=== PATIENT | female | born 1950 | race Caucasian/White ===

== ENCOUNTER → 2017-08-17 | Outpatient (CLI) | payer MEDICARE, SELFPAY | PROVIDERS: PCP Family Medicine; Visit Provider Family Medicine | DX: R07.2 Precordial pain (principal) | CPT/HCPCS: 78452; 93017; A9502; J2785 ==

== ENCOUNTER 2017-09-01 07:44 | Day surgery (SDC) | payer MEDICARE, SELFPAY ==
[2017-09-01] VITALS (15 sets, daily range): BP systolic 104–150; BP diastolic 51–74; PULSE 66–72; RESP 18–20; TEMP 36.4–36.6; O2SAT 94–99; BMI 43.2
--- NOTE | 2017-09-01 08:30 | IR_ITS ---
CARDIAC CATHETERIZATION DATE OF CATHETERIZATION:09/01/2017 9:34 AM PROCEDURES: 1. Left heart catheterization 2. Left ventriculogram 3. Selective coronary angiogram 4. Left internal mammary angiography 5. Selective engagement of the saphenous vein graft to the circumflex artery INDICATION FOR TEST: 1. Coronary artery disease 2. History of coronary bypass surgery 3. Abnormal study Myoview Informed consent was obtained prior to the procedure. COMPLICATIONS: None ESTIMATED BLOOD LOSS: Less than 10 ml. TECHNIQUE: One percent lidocaine was used to anesthetize the right groin. The right femoral artery was accessed via the Seldinger technique. A 4-Albanian sheath was placed in the right femoral artery. The JL-4 and JR-4 catheter was also used to perform left heart catheterization left ventriculogram and selective coronary angiography. The JR4 catheter was used to perform left internal mammary angiography as well as saphenous vein graft to the circumflex artery.. At the end of the procedure the patient was transferred to the post-op holding area in stable condition for arterial sheath removal. ANGIOGRAPHIC RESULTS: 1. The left main artery has an ostial 40-50% smooth stenosis 2. The left anterior descending artery is normal 3. The circumflex artery has proximal 20% stenoses with competitive flow in the first obtuse marginal artery from the saphenous vein graft 4. The right coronary artery dominant and normal 5. The LEE ventriculogram reveals normal 65% 6. The left ventricular end-diastolic pressure 10 mmHg 7. The saphenous vein graft to the obtuse marginal artery is angiographically normal and makes excellent anastomosis on to the obtuse marginal artery 8. Left internal mammary artery is proximally occluded IMPRESSION: 1. Coronary artery disease as described above 2. Normal ejection fraction 3. Normal left ventricular end-diastolic pressure PLAN: 1. Medical management 2. Evaluation of noncardiac chest pain
[2017-09-01 08:34] LABS: Basophils # 0.1 K/mm3 (0-0.2); Basophils % 0.8 % (0.1-2.0); Eosinophils # 0.3 K/mm3 (0.0-0.4); Hematocrit 37.7 % (37.0-47.0); Hemoglobin 12.2 g/dL (12.2-16.2); Lymphocytes # 2.3 K/mm3 (0.7-4.5); Lymphocytes % 23.1 K/mm3 (10-50); Mean Corpuscular HGB Conc 32.2 g/dL (31.8-35.4); Mean Corpuscular Hemoglobin 26.1 pg (27.0-31.2); Mean Corpuscular Volume 81.1 fl (81-99); Monocytes # 0.5 K/mm3 (0.1-1.0); Monocytes % 4.7 % (1.7-9.3); Neutrophils # 6.8 K/mm3 (1.8-7.8); Neutrophils % 68.4 % (37.0-80.0); Platelet Count 286 K/mm3 (142-424); Red Blood Count 4.66 M/mm3 (4.20-5.40); Red Cell Distribution Width 13.7 % (11.5-17.5); White Blood Count 9.9 K/mm3 (4.8-10.8)
[2017-09-01 08:51] LABS: Anion Gap 10.7 mEq/L (5-15); Blood Urea Nitrogen 12 mg/dL (7-18); Carbon Dioxide 27 mmol/L (21.0-32.0); Chloride 104 mmol/L (98-107); Creatinine Clearance Estimated 48 mg/ml (0-300); Creatinine,Serum 0.92 mg/dL (0.55-1.02); Estimated Glomerular Filt Rate > 60 ml/min (>60); GFR (African American) > 60 ML/MIN (>60); Glucose 146 mg/dL (74-106); Potassium 3.7 mmoL/L (3.5-5.1); Sodium 138 mmol/L (136-145)
--- NOTE | 2017-09-15 11:04 | PC.NURSE ---
post procedure call made, pt states she is doing well, has f/u appt with md this week, denies any questions/concerns at this time
== END 2017-09-01 13:30 | disposition home or self-care (01) ==
LOC: CATHLAB 07:47
PROVIDERS: Family Provider Family Medicine; PCP Family Medicine; Visit Provider Internal Medicine
DX: I25.10 Atherosclerotic heart disease of native coronary artery without angina pectoris (principal); R94.39 Abnormal result of other cardiovascular function study; Z95.1 Presence of aortocoronary bypass graft
CPT/HCPCS: 80048; 85025; 93459; 99152; C1725; C1769; C1894; J1644; Q9967

== ENCOUNTER → 2018-06-01 13:58 | Outpatient (CLI) | payer MEDICARE, SELFPAY ==
--- NOTE | 2018-06-01 | MM_ITS ---
MM Dig screening mamm BI w/CAD ORDERING PHYSICIAN : Horace Retana MD PATIENT AGE: 68 years GENDER: Female COMPARISON: January 2017, July 2017, December 2015 with March 2011 mammogram also helpful. . Right mammogram study from July 2017, January 2016 INDICATION: ITS.REASON: SCREENING no hormones. No new complaints.. Family history : sister with breast cancer postmenopausal Previous cyst aspiration left breast previous percutaneous biopsy right breast TECHNIQUE: Standard CC and MLO images were obtained. R2 CAD reviewed. FINDINGS: Moderate breast density. Scattered areas of nodularity bilaterally similar to previous studies. Skin mole markers bilaterally RIGHT BREAST:No significant new findings ... Small area of density at the lateral breast on cc view which remain stable... Studies dating back to 2010 ongoing follow-up adequate . Metallic marker from previous percutaneous biopsy at the central breast again noted with minimal residual postbiopsy density here.. Stable/unchanged. LEFT BREAST:No significant new findings.. Small stable nodular density medial left breast with overall benign-appearing fairly punctate calcifications. This is been present appears overall stable since 2016 & 2010 mammograms.--thus can be followed followed. Follow-up in one year on left. The Left MLO view appears unchanged since last year IMPRESSION: . Stable bilateral mammogram. No significant new findings. Stable densities bilaterally Stable small areas of density right breast can be followed. Stable areas of minimal nodularity left breast Bilateral follow-up within one year recommended & should be encouraged. BI-RADS Category: 2 Benign Finding(s) RECOMMENDED FOLLOW-UP: 1YR 1 YEAR FOLLOW-UP One year follow-up recommended and important (A letter has been sent to the patient regarding results of the study.)
== END ==
PROVIDERS: PCP Family Medicine; Visit Provider Family Medicine
DX: Z12.31 Encounter for screening mammogram for malignant neoplasm of breast (principal)
CPT/HCPCS: 77067

== ENCOUNTER → 2018-07-12 16:24 | Outpatient (CLI) | payer MEDICARE, SELFPAY ==
--- NOTE | 2018-07-12 16:32 | XR_ITS ---
XR hip LT 2-3V w/pelvis, XR femur LT 2V XR knee LT 3V, Ordering Physician: Meron Jones MD Patient Age: 68 years: Female HISTORY: ITS.REASON: LEFT LEG PAIN TECHNIQUE: Left hip 2 vi view Left femur 2 view Left knee 3 view COMPARISON no previous left knee or left leg studies :. Contralateral right knee May 2010 CT abdomen pelvis from May 2013--includes left hip images FINDINGS ======= LEFT HIP.: Comparison is made to June 17, 2013 CT pelvis/abdomen Again see Joint space narrowing most evident at medial/posterior aspect of the left hip joint space... Actually the prior 2012 CT pelvis very helpful in demonstrating narrowing and previous evident arthritic changes at left hip- most evident along posterior aspect left hip joint. Numerous subchondral cystic changes and mild sclerosis seen throughout the posterior/medial portion of the acetabulum.. On today's study there may be some early subchondral cystic changes towards the roof of acetabulum as well today.. Hypertrophic lipping from inferior femoral head and inferior acetabulum-most evident inferior/ posterior aspect of joint... Of AP PELVIS . This demonstrates the more evident arthritic changes at the left hip versus the fairly normal-appearing right hip. Right hip appears intact with only borderline narrowing superior joint space and possible scant degenerative changes. Right femoral head and neck unremarkable on this AP view. Remainder of osseous pelvis appears intact. Sacrum and SI joints, iliac bone, and pubis and rami unremarkable.-Remainder of the AP pelvis appears stable. ======= LEFT KNEE: Left TKA.. Components appear to be stable with no fracture nor loosening evident. Upper normal joint fluid perhaps small joint effusion questioned at suprapatellar bursa. . dystrophic calcification/ossifications evident and pronounced overlying the medial aspect of the joint. Please corticated altercation/ossifications overlying medial margin of the medial femoral condyle as well as possibly involving the medial joint capsule or MCL. Mild hypertrophic changes from the lateral margin of the lateral tibial plateau. On lateral view there small focus of dystrophic calcification at the quadriceps tendon with a slightly larger one off the inferior margin of patella and insertion of patellar tendon.. LEFT FEMUR: The left femur is intact. Femoral shaft is intact with no fracture. Left TKA again noted. . ------IMPRESSION/ SUMMARY 1. LEFT HIP Moderate Arthritic changes left hip-these have been present since 2013 CT-with subtle progression. Narrowing/arthritic changes left hip joint most evident posterior medial joint, as well as inferior joint. Numerous subchondral cyst & mild sclerosis throughout posterior acetabulum Hypertrophic lipping most evident along inferior aspect joint. 2. LEFT KNEE:. . Left TKA appears intact with no fracture nor loosening.... Suggestion scant joint effusion . Dystrophic calcifications/ossification most evident along medial aspect joint, but also seen along margins patella. Appear long-standing but No previous studies for comparison 3. LEFT FEMUR otherwise intact
== END ==
PROVIDERS: PCP Family Medicine; Visit Provider Family Medicine
DX: M25.562 Pain in left knee (principal); M25.552 Pain in left hip; M79.605 Pain in left leg
CPT/HCPCS: 73502; 73552; 73562

== ENCOUNTER → 2018-11-10 12:36 | Outpatient (CLI) | payer MEDICARE, SELFPAY ==
--- NOTE | 2018-11-10 12:41 | CA_ITS ---
PROCEDURE: 2-D M-mode and color Doppler study INDICATIONS FOR THE TEST: Chest pain COPD Heart Murmur Tobacco Smoking Palpitations Fatigue Syncope Edema Hypertension +Diabetes Mellitus Rheumatic Fever SOB+GORE Obesity Hyperlipidemia+ Family History HD Additional History CABG PATIENT INFORMATION HEIGHT: 66 WEIGHT:265 GENDER: Female B/P:132/70 2-D/M-MODE INTERPRETATION: 2-D MEASUREMENTS OBSERVED VALUES IN CMS Right Ventricular Dimension (RVDd) 2.2 Interventricular Septum (Thickness)(IVsd) 1.6 Left Ventricular Internal Dimensions(LVIDd) 5.5 Left Ventricular Posterior Wall (Thickness)(LVPWd) 0.8 Aortic Root 3.5 Aortic Cusp Separation 2.1 Left Atrial Dimensions (LAD) 3.6 2D 1. Left Atrium is mildly enlarged, left ventricle is normal size, mild concentric left ventricular hypertrophy, visually estimated ejection fraction 50% with no regional wall motion abnormality. 2. The right atrium and right ventricle are normal size and contractility. 3. The aortic valve is minimally thickened and fibrosed. 4. The mitral and tricuspid valve leaflets are minimally thickened. 5. The pulmonic valve is poorly visualized. 6. No significant pericardial effusion noted. DOPPLER INTERROGATION: Doppler interrogation of the aortic, mitral and tricuspid valvular presence of mild mitral and tricuspid regurgitation, tricuspid regurgitation jet velocity is inadequate for calculation of the right ventricular systolic pressure, grade 1 diastolic dysfunction seen with tissue Doppler evidence of raised left atrial pressure. CONCLUSION: 1. Mildly enlarged left atrium, normal left ventricular size, mild concentric left ventricular hypertrophy, visually estimated ejection fraction 50% with no regional wall motion abnormality, grade 1 diastolic dysfunction seen with tissue Doppler evidence of raised left atrial pressure. 2. Mild mitral and tricuspid regurgitation 3. No significant pericardial effusion noted.
== END ==
PROVIDERS: PCP Family Medicine; Visit Provider Internal Medicine
DX: E78.2 Mixed hyperlipidemia (principal); I10 Essential (primary) hypertension; I25.10 Atherosclerotic heart disease of native coronary artery without angina pectoris; K21.9 Gastro-esophageal reflux disease without esophagitis; R06.02 Shortness of breath; Z95.1 Presence of aortocoronary bypass graft
CPT/HCPCS: 93306

== ENCOUNTER → 2018-12-11 08:02 | Outpatient (CLI) | payer MEDICARE, SELFPAY ==
--- NOTE | 2018-12-11 08:05 | CT_ITS ---
CT abdomen pelvis wo con CLINICAL INDICATION: Abdominal mass with tenderness and swelling ITS.REASON: ABDOMINAL MASS ORDERING PHYSICIAN: Horace Retana MD PATIENT AGE: 68 years COMPARISON: 06/28/2013 TECHNIQUE: Axial images obtained with sagittal and coronal reformats. All CT scans at the facility use one or more dose reduction, viz: automated exposure control, ma/kV adjustment per patient size (including targeted exams where dose is matched to indication, i.e. head), or iterative reconstruction technique. PROCEDURE: Oral Contrast: None IV Contrast: None . FINDINGS: There are atelectatic or fibrotic changes in the lung bases. Diffuse fatty liver. Prior cholecystectomy. No ductal dilatation. The spleen, adrenal glands, and pancreas have an unremarkable appearance. No hydronephrosis or ureteral calculi. There is a 2 mm stone in the upper pole the right kidney. There is a ventral abdominal wall hernia containing fat. This is 4 cm above the umbilicus. There is some minimal infiltration of the peritoneal fat just deep to this hernia. There is a small umbilical hernia which also contains fat. No evidence of appendicitis or diverticulitis. No intestinal obstruction or free air. Prior hysterectomy. No pelvic mass or abnormal fluid collection or focal inflammatory changes pelvis. There are mild degenerative changes of the hips. IMPRESSION: 1. There is a small supraumbilical and small umbilical hernia both containing fat with some minimal haziness of the fat just deep to the supra umbilical hernia. 2. Fatty liver. 3. Punctate right renal calculus at 2 mm
[2018-12-11 09:28] LABS: Alanine Aminotransferase 35 U/L (12-78); Albumin Level 3.4 gm/dL (3.4-5.0); Albumin/Globulin Ratio 0.9 (1.1-1.8); Alkaline Phosphatase 97 U/L (46-116); Anion Gap 12.7 mEq/L (5-15); Aspartate Amino Transferase 13 U/L (15-37); Bilirubin,Total 0.3 mg/dL (0.2-1.0); Blood Urea Nitrogen 14 mg/dL (7-18); Calcium 8.9 mg/dL (8.5-10.1); Carbon Dioxide 28 mmol/L (21.0-32.0); Chloride 106 mmol/L (98-107); Chol/HDL Ratio 3.2 (1-3.5); Cholesterol 136 mg/dL (140-200); Creatinine,Serum 1.02 mg/dL (0.55-1.02); Estimated Glomerular Filt Rate 54 ml/min (>60); GFR (African American) 65 ML/MIN (>60); Globulin 3.6 gm/dl (1.3-3.2); Glucose 160 mg/dL (74-106); HDL Cholesterol 43 mg/dL (29-89); LDL Cholesterol 64 mg/dL (0-130); Potassium 4.7 mmoL/L (3.5-5.1); Sodium 142 mmol/L (136-145); Triglycerides 146 mg/dL (30-200); VLDL Cholesterol 29 mg/dL (0-40)
[2018-12-11 10:16] LABS: Hemoglobin A1C 8.5 % (0.0-7.0)
== END ==
PROVIDERS: PCP Family Medicine; Visit Provider Family Medicine
DX: R19.09 Other intra-abdominal and pelvic swelling, mass and lump (principal); E11.9 Type 2 diabetes mellitus without complications; Z79.84 Long term (current) use of oral hypoglycemic drugs; E78.5 Hyperlipidemia, unspecified; I25.10 Atherosclerotic heart disease of native coronary artery without angina pectoris; I10 Essential (primary) hypertension
CPT/HCPCS: 36415; 74176; 80053; 80061; 83036

== ENCOUNTER → 2019-01-10 14:55 | Outpatient (CLI) | payer MEDICARE, SELFPAY ==
[2019-01-10 15:25] LABS: Microscopic, Urine URINE MICROSCOPIC (MICROSCOPIC)
[2019-01-10 15:46] LABS: Appearance,Urine CLEAR (Clear); Bilirubin,Urine Negative (Negative); Blood, Urine 1+ (Negative); Color,Urine YELLOW (Yellow); Glucose,Urine (UA) Negative (Negative); Ketones,Urine Negative (Negative); Leukocyte Esterase,Urine TRACE (Negative); Nitrate,Urine Negative (Negative); Protein,Urine Negative (Negative); Urobilinogen,Urine 0.2 EU/dl (0.2)
[2019-01-10 15:57] LABS: Basophils # 0.1 K/mm3 (0-0.2); Basophils % 0.8 % (0.1-2.0); Eosinophils # 0.2 K/mm3 (0.0-0.4); Eosinophils % 2.2 % (0.1-12.0); Hemoglobin 12.2 g/dL (12.2-16.2); Lymphocytes # 2.6 K/mm3 (0.7-4.5); Lymphocytes % 24.9 % (10-50); Mean Corpuscular HGB Conc 32.8 g/dL (31.8-35.4); Mean Corpuscular Hemoglobin 27.3 pg (27.0-31.2); Mean Corpuscular Volume 83.2 fl (81-99); Mean Platelet Volume 7.1 fl (7.4-10.4); Monocytes # 0.4 K/mm3 (0.1-1.0); Monocytes % 3.6 % (1.7-9.3); Neutrophils # 7.1 K/mm3 (1.8-7.8); Neutrophils % 68.6 % (37.0-80.0); Platelet Count 339 K/mm3 (142-424); Red Blood Count 4.45 M/mm3 (4.20-5.40); Red Cell Distribution Width 13.5 % (11.5-17.5); White Blood Count 10.3 K/mm3 (4.8-10.8)
[2019-01-10 16:10] LABS: Bacteria,Urine Trace /lpf; RBC,Urine Occasional #/hpf (0-3); WBC,Urine Occasional #/hpf (0-3)
[2019-01-10 17:02] LABS: Anion Gap 14.4 mEq/L (5-15); Blood Urea Nitrogen 17 mg/dL (7-18); Calcium 8.9 mg/dL (8.5-10.1); Carbon Dioxide 27 mmol/L (21.0-32.0); Chloride 104 mmol/L (98-107); Creatinine,Serum 0.92 mg/dL (0.55-1.02); Estimated Glomerular Filt Rate 61 ml/min (>60); GFR (African American) 73 ML/MIN (>60); Glucose 122 mg/dL (74-106); Potassium 4.4 mmoL/L (3.5-5.1); Sodium 141 mmol/L (136-145)
== END ==
PROVIDERS: Surgery; PCP Family Medicine; Visit Provider Family Medicine
DX: K81.1 Chronic cholecystitis (principal); K42.9 Umbilical hernia without obstruction or gangrene
CPT/HCPCS: 36415; 80048; 81001; 85025; 93005

== ENCOUNTER → 2019-01-10 15:18 | Outpatient (CLI) | payer MEDICARE, SELFPAY | PROVIDERS: Visit Provider Surgery | DX: Z01.818 Encounter for other preprocedural examination (principal) | CPT/HCPCS: 36415; 80048; 81001; 85025; 93005 ==

== ENCOUNTER → 2019-03-16 14:17 | Outpatient (CLI) | payer MEDICARE, SELFPAY ==
--- NOTE | 2019-03-16 14:20 | XR_ITS ---
XR DEXA axial skeleton HISTORY: ITS.REASON: POST MENOPAUSAL ORDERING PHYSICIAN: Horace Retana MD PATIENT AGE: 68 years COMPARISON: 02/03/2017 FINDINGS: The BMD measured at the AP Spine L1-L4 femoral neck is 1.302 g/cm squared with a T score of 1.0. This is considered Normal according to the World Health Organization criteria. Fracture risk is Low. Treatment is advised. The L-spine density has increased by 4.7%. The main hip density has a T score 1.6 and has decreased by 1.9% IMPRESSION: Normal bone density with low fracture risk. Suggest follow-up exam in 2 years
== END ==
PROVIDERS: PCP Family Medicine; Visit Provider Family Medicine
DX: Z78.0 Asymptomatic menopausal state (principal)
CPT/HCPCS: 77080

== ENCOUNTER → 2019-06-25 13:03 | Outpatient (CLI) | payer MEDICARE, SELFPAY ==
--- NOTE | 2019-06-25 13:04 | XR_ITS ---
PROCEDURE: XR THORACIC SPINE 3V CLINICAL INDICATION: LUMBAGO W/SCIATICA Pain between shoulder blade COMPARISON: CXR2 CHEST-AP VIEW ONLY from 12/11/2015 CXR CHEST(2 VIEWS-NOT PORTABLE) from 09/07/2016 FINDINGS: Minimal upper thoracic curvature convex left and mid to lower thoracic curvature convex right. Multilevel degenerative disc disease with mild kyphosis. T5 and T6 which appears slightly worse at T6 compared to 09/07/2016. IMPRESSION: Degenerative change with kyphosis with mild wedging of T6 which appears slightly worse Dictated by: Ritesh Taylor MD 06/25/2019 14:19 Electronically signed by Ritesh Taylor MD in [place] 06/25/2019 14:19
--- NOTE | 2019-06-25 13:05 | MM_ITS ---
PROCEDURE: MM DIG SCREENING MAMM BI W/CAD CLINICAL INDICATION: SCREENING There is a history of breast cancer in patient's sister diagnosed after menopause. There has been a previous cyst aspiration left breast for benign disease. COMPARISON: [facility] DIG MAMM-SCREEN ELIJAH W/CAD from 02/03/2017 [facility] DIG MAMM-DX UNI-RT W/CAD from 08/11/2017 [facility] MM Dig screening mamm BI w/CAD from 06/01/2018 TECHNIQUE: Standard CC and MLO images were obtained. R2 CAD reviewed. FINDINGS: Diffuse fibroglandular densities are seen throughout both breasts. There are mole markers on each breast. There is a biopsy clip central portion right breast. There are few scattered benign-appearing microcalcifications in each breast. There is an asymmetric density outer quadrant right breast best seen on the CC projection which has been present previously but shows possibly slight interval increase in size and density. I would recommend patient return for follow-up spot compression views of the area marked on images of the right breast, ultrasound may be necessary as well. IMPRESSION: Fibrofatty parenchyma with possible change in asymmetric density right breast BI-RAD Category: 0 Need Additional Imaging Evaluation FOLLOW-UP: IMM Immediate Follow-up Recommended (A letter has been sent to the patient regarding results of the study.) Dictated by: Dr. Juno Betancur MD 06/27/2019 15:[address] Juno Betancur MD in [place] 06/27/2019 15:00
== END ==
PROVIDERS: PCP Family Medicine; Visit Provider Family Medicine
DX: Z12.31 Encounter for screening mammogram for malignant neoplasm of breast (principal)
CPT/HCPCS: 72072; 77067

== ENCOUNTER → 2019-08-07 14:06 | Outpatient (CLI) | payer MEDICARE, SELFPAY ==
--- NOTE | 2019-08-07 14:10 | MM_ITS ---
PROCEDURE: MM DIG MAMM DX UNILAT RT CAD CLINICAL INDICATION: ABNORMAL MAMM Follow-up abnormal mammogram COMPARISON: [facility] DIG MAMM-SCREEN ELIJAH from 01/13/2016 [facility] DIG MAMM- ELIJAH ADD VIEWS from 02/02/2016 [facility] DIG MAMM-DX UNI-RT from 02/25/2016 [facility] DIG MAMM-SCREEN ELIJAH W/CAD from 02/03/2017 [facility] DIG MAMM-DX UNI-RT W/CAD from 08/11/2017 [facility] MM Dig screening mamm BI w/CAD from 06/01/2018 MM DIG SCREENING MAMM BI W/CAD from 06/25/2019 US BREAST RT COMPLETE from 08/07/2019 TECHNIQUE: Problem solving views of the right breast along with right breast ultrasound FINDINGS: Average fibroglandular tissue. There has been a prior biopsy with clip in the central aspect of the right breast. There is some asymmetric density in this region. This is not well-defined and may only be due to asymmetric fibroglandular tissue.. This area of asymmetry not significantly changed and not as prominent on the rolled views. Right breast ultrasound: Small complex cyst is present at 10 o'clock at 4 mm and could in part contribute to the mammographic abnormality. No suspicious nodules are evident. IMPRESSION: Asymmetry in the outer aspect of the right breast which may be due to overlapping fibroglandular tissue and a small complex cyst. No convincing evidence of malignancy. Recommend six-month mammographic and sonographic follow-up BI-RAD Category: 3 Probably Benign Finding Short Term Follow-up FOLLOW-UP: 6M 6Month Follow-up (A letter has been sent to the patient regarding results of the study.) Dictated by: Ritesh Taylor MD 08/11/2019 11:31 Electronically signed by Ritesh Taylor MD in [place] 08/11/2019 11:31
== END ==
PROVIDERS: PCP Family Medicine; Visit Provider Nurse Practitioner Family
DX: R92.8 Other abnormal and inconclusive findings on diagnostic imaging of breast (principal)
CPT/HCPCS: 76641; 77065

== ENCOUNTER → 2019-08-24 13:44 | Outpatient (CLI) | payer MEDICARE, SELFPAY ==
[2019-08-24 13:59] LABS: Adenovirus F 40/41, stool Not Detected (NotDetected); Astrovirus Not Detected (NotDetected); Campylobacter Not Detected (NotDetected); Clostridium Difficile A/B, PCR Not Detected (NotDetected); Cryptosporidium Not Detected (NotDetected); Cyclospora Cayetanesis Not Detected (NotDetected); Entamoeba histolytica Not Detected (NotDetected); Enteroaggregative E coli Not Detected (NotDetected); Enteropathogenic E coli Not Detected (NotDetected); Enterotoxigenic E coli Not Detected (NotDetected); Giardia lamblia Not Detected (NotDetected); Norovirus Not Detected (NotDetected); Plesimonas Shigalloides, PCR Not Detected (NotDetected); Rotavirus A Not Detected (NotDetected); Salmonella, PCR Not Detected (NotDetected); Sapovirus Not Detected (NotDetected); Shiga-like toxin E coli Not Detected (NotDetected); Shigella Enterovasive E coli Not Detected (NotDetected); Vibrio Cholerae Not Detected (NotDetected); Vibrio, PCR Not Detected (NotDetected); Yersinia Entercolitica, PCR Not Detected (NotDetected)
== END ==
PROVIDERS: Visit Provider Physician Assistant
DX: R19.7 Diarrhea, unspecified (principal)
CPT/HCPCS: 87507

== ENCOUNTER → 2019-10-30 11:56 | Outpatient (CLI) | payer MEDICARE, SELFPAY ==
[2019-10-30 13:08] LABS: Chloride 105 mmol/L (98-107); Potassium 5.1 mmoL/L (3.5-5.1); Sodium 138 mmol/L (136-145)
[2019-10-30 13:11] LABS: Alanine Aminotransferase 18 U/L (12-78); Albumin Level 3.6 g/dl (3.5-5.0); Albumin/Globulin Ratio 1.1 (1.1-1.8); Alkaline Phosphatase 99 U/L (38-126); Anion Gap 12.1 mEq/L (5-15); Aspartate Amino Transferase 23 U/L (14-36); Bilirubin,Total 0.4 mg/dl (0.2-1.3); Blood Urea Nitrogen 20 mg/dl (7-17); Calcium 9.3 mg/dl (8.4-10.2); Carbon Dioxide 26 mmol/L (22.0-30.0); Cholesterol 127 mg/dl (140-200); Estimated Glomerular Filt Rate 71 ml/min (>60); GFR (African American) 86 ML/MIN (>60); Globulin 3.2 g/dL (1.3-3.2); Glucose 157 mg/dl (74-100); Total Protein,Serum 6.8 g/dl (6.3-8.2); Triglycerides 119 mg/dl (30-150); VLDL Cholesterol 24 mg/dL (0-40)
[2019-10-30 13:12] LABS: Chol/HDL Ratio 2.6 (1-3.5); HDL Cholesterol 49 mg/dl (40-60)
[2019-10-30 13:20] LABS: NT Pro Brain Natriuretic Pep. 70.2 pg/mL (0-125)
[2019-10-30 13:23] LABS: Direct LDL Cholesterol 55.44 mg/dL (100-129)
[2019-10-31 18:41] LABS: Hemoglobin A1C 7.4 % (4.0-6.0)
== END ==
PROVIDERS: PCP Family Medicine; Visit Provider Internal Medicine Cardiovascular Disease
DX: E78.5 Hyperlipidemia, unspecified (principal); I11.9 Hypertensive heart disease without heart failure; I20.8 Other forms of angina pectoris; K21.9 Gastro-esophageal reflux disease without esophagitis; R06.00 Dyspnea, unspecified; Z95.1 Presence of aortocoronary bypass graft; E11.9 Type 2 diabetes mellitus without complications; Z79.84 Long term (current) use of oral hypoglycemic drugs
CPT/HCPCS: 36415; 80053; 80061; 83036; 83880

== ENCOUNTER → 2019-11-01 13:10 | Outpatient (CLI) | payer MEDICARE, SELFPAY | PROVIDERS: PCP Family Medicine; Visit Provider Internal Medicine Cardiovascular Disease | DX: G47.33 Obstructive sleep apnea (adult) (pediatric) (principal); R06.00 Dyspnea, unspecified; R06.83 Snoring; R40.0 Somnolence; I11.9 Hypertensive heart disease without heart failure; I20.8 Other forms of angina pectoris; K21.9 Gastro-esophageal reflux disease without esophagitis; E78.5 Hyperlipidemia, unspecified; Z95.1 Presence of aortocoronary bypass graft | CPT/HCPCS: G0399 ==

== ENCOUNTER → 2020-03-21 16:26 | Outpatient (CLI) | payer MEDICARE, SELFPAY ==
--- NOTE | 2020-03-21 16:35 | XR_ITS ---
PROCEDURE: XR RIBS RT MIN 3V W CXR1V CLINICAL INDICATION: UNSPECIFIED INJURY OF THORAX Posttraumatic pain COMPARISON: CXR2 CHEST-AP VIEW ONLY from 12/11/2015 CXR CHEST(2 VIEWS-NOT PORTABLE) from 09/07/2016 FINDINGS: Multiple views of the left ribs show no obvious fracture. No lytic or blastic change. Consider follow-up in 7-[address] with 3D reformats if pain persists Frontal view of the chest shows no acute finding. There has been a prior CABG with borderline cardiomegaly. IMPRESSION: No acute findings. Dictated by: Ritesh Taylor MD 03/21/2020 16:55 Electronically signed by Ritesh Taylor MD in [place] 03/21/2020 16:55
== END ==
PROVIDERS: PCP Family Medicine; Visit Provider Family Medicine
DX: S29.9XXA Unspecified injury of thorax, initial encounter (principal)
CPT/HCPCS: 71101

== ENCOUNTER → 2020-05-13 15:18 | Outpatient (CLI) | payer MEDICARE, SELFPAY ==
[2020-05-13 16:24] LABS: Anion Gap 15.5 mEq/L (5-15); Blood Urea Nitrogen 17 mg/dl (7-17); Calcium 9.5 mg/dl (8.4-10.2); Carbon Dioxide 26 mmol/L (22.0-30.0); Chloride 102 mmol/L (98-107); Estimated Glomerular Filt Rate 71 ml/min (>60); GFR (African American) 86 ML/MIN (>60); Glucose 174 mg/dl (74-100); Potassium 4.5 mmoL/L (3.5-5.1); Sodium 139 mmol/L (136-145)
== END ==
PROVIDERS: Visit Provider Internal Medicine Cardiovascular Disease
DX: E78.5 Hyperlipidemia, unspecified (principal); I11.9 Hypertensive heart disease without heart failure; I25.10 Atherosclerotic heart disease of native coronary artery without angina pectoris; K21.9 Gastro-esophageal reflux disease without esophagitis; R06.00 Dyspnea, unspecified; Z95.1 Presence of aortocoronary bypass graft
CPT/HCPCS: 36415; 80048

== ENCOUNTER → 2020-06-06 13:06 | Outpatient (CLI) | payer MEDICARE, SELFPAY ==
--- NOTE | 2020-06-06 13:15 | CT_ITS ---
PROCEDURE: CT SINUS WO CON CLINICAL HISTORY: SINUSITIS Chronic sinusitis COMPARISON: CT SINUS CT SINUS (MAX-FACIAL W/O CONT) from 02/07/2015 TECHNIQUE: Axial images obtained with sagittal and coronal reformats. All CT scans at the facility use one or more dose reduction, viz: automated exposure control, ma/kV adjustment per patient size (including targeted exams where dose is matched to indication, i.e. head), or iterative reconstruction technique. FINDINGS: There is minimal lobular mucosal thickening involving the medial aspect of the maxillary sinus on the left near the ostiomeatal complex. The ileum see however is patent. No sinus air-fluid levels. The frontal, ethmoid, right maxillary, and sphenoid sinuses have an unremarkable appearance. No mastoid effusion. Incidental note is made of pneumatization of the petrous bones on both sides. No fluid evident in these areas. No soft tissue mass. The orbits have an unremarkable appearance. There are severe osteoarthritic changes of the TMJs on both sides with flattening of the mandibular condyles. A loose body is present along the anterior aspect of the right temporomandibular joint measuring 5 mm. IMPRESSION: 1. No evidence of acute sinusitis. 2. 4 mm lobular area of mucosal thickening involving the left maxillary sinus superiorly and medially which may be due to small retention cyst. 3. Severe bilateral osteoarthritis of the TMJs with a small loose body along the anterior aspect of the right TMJ. Dictated by: Ritesh Taylor MD 06/07/2020 07:16 Ritesh Taylor MD in [place] 06/07/2020 07:16
== END ==
PROVIDERS: PCP Family Medicine; Visit Provider Otolaryngology
DX: J32.9 Chronic sinusitis, unspecified (principal)
CPT/HCPCS: 70486

== ENCOUNTER → 2020-10-06 13:56 | Outpatient (CLI) | payer MEDICARE, SELFPAY ==
--- NOTE | 2020-10-06 14:01 | XR_ITS ---
PROCEDURE: XR KNEE LT 4V CLINICAL INDICATION: BL knee pain COMPARISON: CR [id number] XR knee LT 3V from 07/12/2018 FINDINGS: There has been a total knee prosthesis placed on the left. There is good alignment. Heterotopic ossification noted medially. Surgical clips are present in the proximal leg medially. Calcification noted both superior and inferior to the patella IMPRESSION: Status post total knee replacement. Good alignment. No significant change Dictated by: Ritesh Taylor MD 10/06/2020 14:50 Ritesh Taylor MD in [place] 10/06/2020 14:50
--- NOTE | 2020-10-06 14:01 | XR_ITS ---
PROCEDURE: XR KNEE RT 4V CLINICAL INDICATION: Bilateral knee pain COMPARISON: CR [id number] XR knee LT 3V from 07/12/2018 FINDINGS: There are moderate osteoarthritic changes all 3 compartments. No fracture or dislocation. No lytic or blastic change. IMPRESSION: Moderate osteoarthritic change Dictated by: Ritesh Taylor MD 10/06/2020 14:48 Ritesh Taylor MD in [place] 10/06/2020 14:48
== END ==
LOC: RAD 13:59
PROVIDERS: PCP Family Medicine; Visit Provider Orthopaedic Surgery
DX: M25.561 Pain in right knee (principal); M25.562 Pain in left knee
CPT/HCPCS: 73564

== ENCOUNTER → 2020-11-11 11:38 | Outpatient (CLI) | payer MEDICARE, SELFPAY ==
[2020-11-11 13:03] LABS: Chloride 107 mmol/L (98-107); Potassium 4.8 mmoL/L (3.5-5.1); Sodium 141 mmol/L (136-145)
[2020-11-11 13:05] LABS: Alanine Aminotransferase 19 U/L (12-78); Aspartate Amino Transferase 23 U/L (14-36); Blood Urea Nitrogen 22 mg/dl (7-17); Estimated Glomerular Filt Rate 62 ml/min (>60); GFR (African American) 75 ML/MIN (>60)
[2020-11-11 13:06] LABS: Albumin Level 3.9 g/dl (3.5-5.0); Albumin/Globulin Ratio 1.1 (1.1-1.8); Alkaline Phosphatase 124 U/L (38-126); Anion Gap 13.8 mEq/L (5-15); Bilirubin,Total 0.3 mg/dl (0.2-1.3); Carbon Dioxide 25 mmol/L (22.0-30.0); Chol/HDL Ratio 2.4 (1-3.5); Cholesterol 120 mg/dl (140-200); Globulin 3.4 g/dL (1.3-3.2); Glucose 199 mg/dl (74-100); HDL Cholesterol 51 mg/dl (40-60); Magnesium 1.5 mg/dl (1.6-2.3); Total Protein,Serum 7.3 g/dl (6.3-8.2); Triglycerides 127 mg/dl (30-150); VLDL Cholesterol 25 mg/dL (0-40)
[2020-11-11 13:17] LABS: Direct LDL Cholesterol 42.44 mg/dL (100-129)
--- NOTE | 2020-11-11 14:11 | XR_ITS ---
PROCEDURE: XR LUMBAR SPINE MIN 4V CLINICAL INDICATION: LOW BACK PAIN COMPARISON: CT ABDPELW/O CT ABD PELVIS W/O CONTRAST from 06/28/2013 DX XR THORACIC SPINE 3V from 06/25/2019 FINDINGS: Normal alignment. No fracture or dislocation. Small anterior osteophytes are present at L5-L4 T12 and L1. there is mild lumbar curvature convex right. Degenerative disc disease is present in the lower thoracic spine. No lytic or blastic change. The SI joints have an unremarkable appearance. Osteoarthritic changes are present in the hips with subchondral cystic changes on the left. Other findings:None. IMPRESSION: Degenerative changes as described above. Dictated by: Ritesh Taylor MD 11/11/2020 14:57 Ritesh Taylor MD in [place] 11/11/2020 14:57
== END ==
PROVIDERS: PCP Family Medicine; Visit Provider Family Medicine
DX: I10 Essential (primary) hypertension (principal); E78.5 Hyperlipidemia, unspecified; E11.9 Type 2 diabetes mellitus without complications; Z79.84 Long term (current) use of oral hypoglycemic drugs
CPT/HCPCS: 36415; 72110; 80053; 80061; 83036; 83735

== ENCOUNTER → 2021-03-04 07:02 | Outpatient (CLI) | payer MEDICARE, SELFPAY ==
--- NOTE | 2021-03-04 07:03 | NM_ITS ---
APPROVED REPORT Exam: Nuclear Stress Test Indication: CAD, CABG, HTN, D.M., FM HX, SOB Patient Location: Outpatient Stress Tech: Jayda Jackson [place] Tech:Aminata SenABY RT (R)(N)(M) Ht: 5 ft 6 in Wt: 250 lbs Bra Size: B HR: 62 bpm BP: 124/60 mmHg BSA: 2.20 m2 BMI: 40.3 History: CAD, CABG, HTN, D.M., FM HX, SOB Procedure: Patient received a 0.4 mg of intravenous Lexiscan, resting heart rate 62 bpm, resting blood pressure 124/60 mmHg, with Lexiscan maximum heart rate achived was 96 bpm which is % of the maximum predicted heart rate and blood pressure was 130/63 mmHg. With Lexiscan, patient denied any complaint of chest pain. KRYSTA, H.A., MALAISE Cardiac Stress and Resting SPECT Images: Cardiac Stress and Resting SPECT images were obtained using technetium 99m Myoview 30.5 mCi stress and 10.20 mCi at rest. Ejection fraction of 58%. Mild dyskenesia of the anterior septal region at the base of the heart. No fixed or reversible defects. Conclusion: Ejection fraction of 58%. Mild dyskenesia of the anterior septal region at the base of the heart. No fixed or reversible defects. Electronically signed by : Ritesh Taylor MD 03/06/2021 14:17:08
--- NOTE | 2021-03-04 07:03 | CA_ITS ---
APPROVED REPORT Exam: Pharmacologic Technologist: oswaldo montgomery, Ht: 5 ft 5 in Wt: 273 lbs BSA: 2.26 m2 HR: 62 bpm BP: 124/60 mmHg Rhythm: NSR,NORMAL Indications: CP Medical History Medical History: HTN, Hyperlipidemia, Diabetic ??? Noninsulin Medications: Omeprazole,,,,, Metoprolol,,,,, Asa,,,,, Metformin,,,,, Coenzyme,,,,, Crestor,,,,, Tylenol,,,,, Tramadol,,,,, Celecoxib,,,,, SpirOnolactone,,,,, Xyzal,,,,, Cardiac Risk Factors: HTN, Hyperlipidemia, Diabetes (non-insulin) Stress Test Details Test: LEXISCAN HR Resting HR: 74 bpm Max Heart Rate (APMHR): 149.743935 bpm Max HR Achieved: 96 bpm Target HR (85% APMHR): 126.996762 bpm % of APMHR: 64.43 Recovery HR: 75 bpm BP Resting BP: 124.0/60.0 mmHg Max BP: 130.0/63.0 mmHg Recovery BP: 122.0/60.0 mmHg ECG Resting ECG: NSR,NORMAL Clinical Exercise duration: 04:06 min Highest Stage Achieved: Stress ECG Conclusion DURING INFUSION PATIENT HAD MILD SOA,MILD STOMACH CRAMPING,HEADACHE AND MALAISE. NO CP. NO ARRHYTHMIAS/ECTOPY. NO SIGNIFICANT ST-T CHANGES. UNREMARKABLE LEXISCAN STRESS. MYOVIEW IMAGES REPORTED SEPARATELY Electronically signed by : Cristobal Mills, 03/05/2021 09:25:13
== END ==
LOC: RAD 07:03
PROVIDERS: PCP Family Medicine; Visit Provider Internal Medicine Cardiovascular Disease
DX: E78.2 Mixed hyperlipidemia (principal); I11.9 Hypertensive heart disease without heart failure; I25.118 Atherosclerotic heart disease of native coronary artery with other forms of angina pectoris; R06.02 Shortness of breath; R06.83 Snoring; R40.0 Somnolence; Z95.1 Presence of aortocoronary bypass graft
CPT/HCPCS: 78452; 93017; A9502; J2785

== ENCOUNTER 2021-04-21 17:34 | Emergency (ER) | payer MEDICARE, SELFPAY ==
[2021-04-21 18:33] VITALS: BP 141/81; PULSE 77; RESP 12; TEMP 36.3; O2SAT 97; BMI 45.2
[2021-04-21 18:48] VITALS: BP 141/81; PULSE 77; RESP 12; TEMP 36.3
--- NOTE | 2021-04-21 18:52 | HMH.EDUTC ---
[facility] Disposition Clinical Impression: Exposure to COVID-19 virus, Viral syndrome Disposition: Home, Self-Care Condition on Discharge: Good Instructions: DI for Viral Syndrome, Preventing the Spread of Coronavirus Discharge Instructions Additional Instructions: Drink plenty of fluids. Take tylenol for pain or fever. Return if you begin to have difficulty breathing. Follow up with your regular doctor for further treatment regarding your possible sinus infection and covid exposure. GO TO THE ER FOR ANY WORSENING SYMPTOMS Quarantine until you know the results of your covid-19 test. If it is positive, the health department should call you and give you further instructions about your length of Quarantine and other things. Notify your school or workplace of your results and follow their instructions regarding return to work/school. Referrals: Horace Retana MD [Primary Care Provider] - Time of Disposition: 18:58 Medical Decision Making - Medical Records Medical records reviewed: No: I reviewed the patient's medical records. - Tomas Inquiry Pt receiving controlled substance: No Vital Signs: 04/21/21 18:33 04/21/21 18:48 Temperature 97.4 F L 97.4 F L Temperature Source Temporal Artery Scan Pulse Rate 77 Pulse Rate [Left] 77 Respiratory Rate 12 12 Blood Pressure 141/81 H Blood Pressure [Right Arm] 141/81 H Blood Pressure Mean [Right Arm] 101 02 Sat by Pulse Oximetry 97 Orders (Tests/Meds): ORDERS Category Date Time Status Covid-19 Nasal PCR ([facility]) Routine Lab 04/21/21 18:29 Received [facility] HPI - General Stated complaint: covid exposure, runny nose, headachem congestion Time Seen by Provider: 04/21/21 18:52 Mode of Arrival: Ambulatory Source of Information: Patient Limitations: No Limitations Description of Symptoms (Recalled from Triage Doc. by RN): pt states Dr. Retana wanted her to have a covid swab. HEENT Symptoms (Recalled from RN notes): No Resp Symptoms (Recalled from RN notes): No Skin Symptoms (Recalled from RN notes): No MS Symptoms (Recalled from RN notes): No Functional Status (Recalled from RN notes): na - History of Present Illness Provider Complaint: She has been exposed to covid by her son having it and she has been around his . She has been vaccinated against covid-19, but her son that has it has been too. She does have sinus congestion and sinus pressure. She states that she does get sinus infections at times and thats what it feels like to her. She states that she was instructed to get a covid test and then follow up with her pcp for treatment. - Related Data Home Medications Medication Instructions Recorded Confirmed Acetaminophen [Acetaminophen ER] 650 mg PO NEEDED PRN 09/01/17 03/19/21 Aspirin [Aspir 81] 81 mg PO DAILYDM 09/01/17 03/19/21 Lactobacillus Combination No.8 3,000 each PO DAILYDM 09/01/17 03/19/21 [Adult Probiotic] Multivitamin with Minerals [One 1 each PO DAILYDM 09/01/17 03/19/21 Daily Complete] Tramadol HCl [Ultram 50mg 50 mg PO Q6H PRN 09/01/17 03/19/21 tablet] irbesartan 150 mg tablet 150 mg PO DAILY 10/31/18 03/19/21 coenzyme Q10 100 mg capsule 100 mg PO DAILY 02/19/19 03/19/21 metformin 500 mg tablet 500 mg PO BID tab 02/19/19 03/19/21 celecoxib 200 mg capsule 200 mg PO DAILY cap 10/19/19 03/19/21 fluticasone propionate 50 2 spray INTRANASAL DAILY ml 05/13/20 03/19/21 mcg/actuation nasal spray,suspension sertraline 50 mg tablet 50 mg PO DAILY tab 08/07/20 03/19/21 glimepiride 2 mg tablet 2 mg PO DAILY tab 02/26/21 03/19/21 levocetirizine 5 mg tablet 5 mg PO DAILY tab 02/26/21 03/19/21 omeprazole 40 mg capsule,delayed 40 mg PO DAILY cap 02/26/21 03/19/21 release rosuvastatin 20 mg tablet 20 mg PO DAILY tab 02/26/21 03/19/21 Previous Rx's Medication Instructions Recorded metoprolol succinate 100 mg 100 mg PO DAILY #90 tab 12/15/20 tablet,extended release 24 hr spironolacton
== END 2021-04-21 19:18 | disposition home or self-care (01) ==
PROVIDERS: Emergency Provider Nurse Practitioner Family; PCP Family Medicine
DX: B34.9 Viral infection, unspecified (principal); Z20.822 Contact with and (suspected) exposure to COVID-19; K21.9 Gastro-esophageal reflux disease without esophagitis; E11.9 Type 2 diabetes mellitus without complications; I25.10 Atherosclerotic heart disease of native coronary artery without angina pectoris; F41.8 Other specified anxiety disorders; E78.5 Hyperlipidemia, unspecified; I10 Essential (primary) hypertension; M79.7 Fibromyalgia; Z88.2 Allergy status to sulfonamides; Z88.5 Allergy status to narcotic agent; Z79.899 Other long term (current) drug therapy
CPT/HCPCS: G0463; 99202; U0003

== ENCOUNTER → 2021-05-08 12:23 | Outpatient (CLI) | payer MEDICARE, SELFPAY | PROVIDERS: PCP Family Medicine; Visit Provider Family Medicine | DX: Z20.822 Contact with and (suspected) exposure to COVID-19 (principal) | CPT/HCPCS: U0003 ==

== ENCOUNTER → 2021-07-28 14:59 | Outpatient (CLI) | payer MEDICARE, SELFPAY | PROVIDERS: Visit Provider Surgery | DX: Z01.812 Encounter for preprocedural laboratory examination (principal); Z20.822 Contact with and (suspected) exposure to COVID-19; Z13.810 Encounter for screening for upper gastrointestinal disorder | CPT/HCPCS: C9803; U0003; U0005 ==

== ENCOUNTER → 2021-08-05 15:43 | Outpatient (CLI) | payer MEDICARE, SELFPAY ==
[2021-08-09 20:08] LABS: D001-IgE D pteronyssinus <0.10 kU/L (Class 0); D002-IgE D farinae <0.10 kU/L (Class 0); E001-IgE Cat Dander <0.10 kU/L (Class 0); E005-IgE Dog Dander <0.10 kU/L (Class 0); E072-IgE Mouse Urine <0.10 kU/L (Class 0); G002-IgE Bermuda Grass <0.10 kU/L (Class 0); G006-IgE Timothy Grass <0.10 kU/L (Class 0); I006-IgE Cockroach, German <0.10 kU/L (Class 0); Immunoglobulin E, Total 33 IU/mL (6-495); M001-IgE Penicillium chrysogen <0.10 kU/L (Class 0); M002-IgE Cladosporium herbarum <0.10 kU/L (Class 0); M003-IgE Aspergillus fumigatus <0.10 kU/L (Class 0); M006-IgE Alternaria alternata <0.10 kU/L (Class 0); T001-IgE Maple/Box Elder <0.10 kU/L (Class 0); T003-IgE Common Silver Birch <0.10 kU/L (Class 0); T006-IgE Cedar, Mountain <0.10 kU/L (Class 0); T007-IgE Oak, White <0.10 kU/L (Class 0); T008-IgE Elm, American <0.10 kU/L (Class 0); T010-IgE Walnut <0.10 kU/L (Class 0); T011-IgE Maple Leaf Sycamore <0.10 kU/L (Class 0); T014-IgE Cottonwood <0.10 kU/L (Class 0); T015-IgE Ash, White <0.10 kU/L (Class 0); T022-IgE Pecan, Hickory <0.10 kU/L (Class 0); T070-IgE White Mulberry <0.10 kU/L (Class 0); W001-IgE Ragweed, Short <0.10 kU/L (Class 0); W011-IgE Thistle, Russian <0.10 kU/L (Class 0); W014-IgE Pigweed, Common <0.10 kU/L (Class 0); W018-IgE Sheep Sorrel <0.10 kU/L (Class 0)
== END ==
PROVIDERS: Visit Provider Otolaryngology
DX: J30.9 Allergic rhinitis, unspecified (principal)
CPT/HCPCS: 36415; 82785; 86003

== ENCOUNTER → 2021-09-08 15:52 | Outpatient (CLI) | payer MEDICARE, SELFPAY ==
--- NOTE | 2021-09-08 15:59 | XR_ITS ---
FINAL REPORT CLINICAL HISTORY: ANKLE PAIN FINDINGS: RIGHT ANKLE 3 views of the right ankle were obtained. There is no acute fracture or dislocation. The mortise is intact. There is a chronic calcification superior to the distal talus. Mild degenerative changes are seen. There is calcaneal spurring. Lateral soft tissue swelling is noted. IMPRESSION: Degenerative changes without acute bony abnormality. Reviewed, Interpreted and Dictated by Coleman Angela III, MD Transcribed by Laura Mcconnell Authenticated by Coleman Angela III, MD on 09/08/2021 04:38:29 PM [facility]
== END ==
LOC: RAD 15:54
PROVIDERS: PCP Family Medicine; Visit Provider Family Medicine
DX: M25.571 Pain in right ankle and joints of right foot (principal)
CPT/HCPCS: 73610

== ENCOUNTER → 2021-10-14 16:34 | Outpatient (CLI) | payer MEDICARE, SELFPAY | LOC: RT 16:37 | PROVIDERS: PCP Family Medicine; Visit Provider Internal Medicine Cardiovascular Disease | DX: E78.2 Mixed hyperlipidemia (principal); G47.33 Obstructive sleep apnea (adult) (pediatric); I11.9 Hypertensive heart disease without heart failure; I25.118 Atherosclerotic heart disease of native coronary artery with other forms of angina pectoris; R00.2 Palpitations; R06.02 Shortness of breath; Z95.1 Presence of aortocoronary bypass graft; Z99.89 Dependence on other enabling machines and devices | CPT/HCPCS: 93270 ==

== ENCOUNTER 2021-11-18 03:04 | Emergency (ER) | payer MEDICARE, SELFPAY ==
[2021-11-18 03:00] VITALS: BP 133/67; PULSE 68; RESP 18; TEMP 37; O2SAT 94; BMI 38.7
[2021-11-18 03:18] LABS: POC Glucose,Bedside 214 (70-110)
[2021-11-18 03:22] LABS: Basophils # 0.1 K/mm3 (0-0.2); Basophils % 1.3 % (0.1-2.0); Eosinophils # 0.6 K/mm3 (0.0-0.4); Hemoglobin 11.4 g/dL (12.2-16.2); Lymphocytes # 2.8 K/mm3 (0.7-4.5); Lymphocytes % 29.1 % (10-50); Mean Corpuscular HGB Conc 32.7 g/dL (31.8-35.4); Mean Corpuscular Hemoglobin 27.5 pg (27.0-31.2); Mean Corpuscular Volume 83.9 fl (81-99); Mean Platelet Volume 8.3 fl (7.4-10.4); Monocytes # 0.5 K/mm3 (0.1-1.0); Monocytes % 4.9 % (1.7-9.3); Neutrophils # 5.8 K/mm3 (1.8-7.8); Platelet Count 274 K/mm3 (142-424); Red Blood Count 4.17 M/mm3 (4.20-5.40); Red Cell Distribution Width 14.9 % (11.5-17.5); White Blood Count 9.7 K/mm3 (4.8-10.8)
[2021-11-18 03:27] LABS: Chloride 109 mmol/L (98-107); Sodium 140 mmol/L (136-145)
[2021-11-18 03:29] LABS: Amylase 66 U/L (30-110); Blood Urea Nitrogen 23 mg/dl (7-17); Creatinine Clearance Estimated 87 mL/min (50-200); Estimated Glomerular Filt Rate 55 ml/min (>60); GFR (African American) 66 ML/MIN (>60)
[2021-11-18 03:30] LABS: Alanine Aminotransferase 22 U/L (12-78); Albumin Level 3.8 g/dl (3.5-5.0); Albumin/Globulin Ratio 1.2 (1.1-1.8); Alkaline Phosphatase 110 U/L (38-126); Aspartate Amino Transferase 24 U/L (14-36); Bilirubin,Total 0.2 mg/dl (0.2-1.3); Calcium 8.2 mg/dl (8.4-10.2); Carbon Dioxide 24 mmol/L (22.0-30.0); Globulin 3.2 g/dL (1.3-3.2); Glucose 208 mg/dl (74-100); Lipase 104 U/L (23-300)
[2021-11-18 03:31] VITALS: BP 119/59; PULSE 62; O2SAT 94
[2021-11-18 04:01] VITALS: BP 146/73; PULSE 71; O2SAT 94
[2021-11-18 04:31] VITALS: BP 119/72; PULSE 68; O2SAT 94
--- NOTE | 2021-11-18 04:42 | HMH.EDGENADL ---
ED Disposition Clinical Impression: Dehydration Nausea and vomiting Qualifiers: Vomiting type: unspecified Qualified Code(s): R11.2 - Nausea with vomiting, unspecified Disposition: Home, Self-Care Condition on Discharge: Good Instructions: DI for Nausea -- Adult, DI for Nausea -- Child, DI for Diarrhea and Traveler's Diarrhea -- Adult, DI for Diarrhea and Traveler's Diarrhea -- Child Referrals: Horace Retana MD [Primary Care Provider] - - Critical Care Critical Care Time: No Attestation: On 11/18/21, the high probability of a clinically significant, sudden or life threatening deterioration of the following system(s) required my full and direct attention, intervention and personal management. The time I documented below is in addition to time spent performing reported procedures but includes the following listed in this critical care notation. Medical Decision Making - Medical Records Medical records reviewed: Yes: I reviewed the patient's medical records. - Tomas Inquiry Pt receiving controlled substance: No Vital Signs: 11/18/21 03:00 Temperature 98.6 F Temperature Source Oral Pulse Rate [Left Radial] 68 Respiratory Rate 18 Blood Pressure [Right Arm] 133/67 Blood Pressure Mean [Right Arm] 89 Blood Pressure Position [Right Arm] Sitting 02 Sat by Pulse Oximetry 94 L Oxygen Delivery Method Room Air - Lab Data Lab Results 11/18/21 03:07: POC Glucose 214 H 11/18/21 03:10: WBC 9.7, RBC 4.17 L, Hgb 11.4 L, Hct 35.0 L, MCV 83.9, MCH 27.5, MCHC 32.7, RDW 14.9, Plt Count 274, MPV 8.3, Neut % (Auto) 60.0, Lymph % (Auto) 29.1, Gates % (Auto) 4.9, Eos % (Auto) 6.0, Baso % (Auto) 1.3, Neut # (Auto) 5.8, Lymph # (Auto) 2.8, Gates # (Auto) 0.5, Eos # (Auto) 0.6 H, Baso # (Auto) 0.1 11/18/21 03:10: Sodium 140, Potassium 4.0, Chloride 109 H, Carbon Dioxide 24, Anion Gap 11.0, BUN 23 H, Creatinine 1.00, Estimated Creat Clear 87, Estimated GFR 55 L, Est GFR ( Amer) 66, Glucose 208 H, Calcium 8.2 L, Total Bilirubin 0.2, AST 24, ALT 22, Alkaline Phosphatase 110, Total Protein 7.0, Albumin 3.8, Globulin 3.2, Albumin/Globulin Ratio 1.2, Amylase 66, Lipase 104 Result diagrams: 11/18/21 03:10 11/18/21 03:10 Orders (Tests/Meds): ED MEDICATIONS Generic Name Dose Route Start Last Admin Trade Name Maggie PRN Reason Stop Dose Admin Sodium Chloride 1,000 mls @ 999 mls/hr 11/18/21 03:15 11/18/21 03:18 Sod Chlor 0.9% 1000ml Bag IV 11/18/21 04:15 999 mls/hr .Q1H1M JANELL Administration Medical Decision Narrative: Patient is a 71-year-old female who presents the ED today for further evaluation of nausea, vomiting, mild epigastric abdominal pain. Patient is well-appearing nurse evaluation, appears dehydrated, with dry mouth, no significant abdominal pain on exam, no peritonitis, Zofran has helped with nausea. We will administer 1 L of IV fluid to get CBC and CMP to ensure electrolytes all right. Electrolytes within normal limits, patient feels symptomatically improved after 1 L of fluids, wants to go home at this time, will give Zofran to go at home with a prescription, patient given return precautions return to ED with any new or worsening symptoms, able to ambulate, tolerate p.o., dizziness has resolved at this point. General Adult HPI - General Chief complaint: Nausea/Vomiting/Diarrhea Stated complaint: nausea,vomiting,diarrhea Time Seen by Provider: 11/18/21 03:04 Mode of Arrival: EMS Limitations: No Limitations Description of Symptoms (Recalled from ER Triage Doc. by RN): PT BEGAN HAVING N/V/D AT APPROX 1 A.M. - History of Present Illness HPI narrative: Patient is a 71-year-old female presents the ED today for nausea and vomiting, states that this was acute onset this evening, states that it is associated with mild headache and dizziness, states she has felt unwell for the last couple of days, states that she has had the symptoms before in the past. Patient called EMS today, and dickson
[2021-11-18 05:58] VITALS: BP 112/62; PULSE 66; RESP 18; TEMP 36.9; O2SAT 92
== END 2021-11-18 06:02 | disposition home or self-care (01) ==
PROVIDERS: Emergency Provider Student in an Organized Health Care Education/Training Program; PCP Family Medicine
DX: E86.0 Dehydration (principal); I10 Essential (primary) hypertension; E78.5 Hyperlipidemia, unspecified; K21.9 Gastro-esophageal reflux disease without esophagitis; E11.9 Type 2 diabetes mellitus without complications; F41.8 Other specified anxiety disorders; Z88.2 Allergy status to sulfonamides; Z88.8 Allergy status to other drugs, medicaments and biological substances; Z79.899 Other long term (current) drug therapy
CPT/HCPCS: 80053; 82150; 82962; 83690; 85025; 96360; 96365; 99284

== ENCOUNTER → 2021-12-16 16:40 | Outpatient (CLI) | payer MEDICARE, SELFPAY ==
--- NOTE | 2021-12-16 16:45 | XR_ITS ---
PROCEDURE INFORMATION: Exam: XR Right Knee Exam date and time: 12/16/2021 4:52 PM Age: 71 years old Clinical indication: Pain; Knee; Right; Additional info: Pain in right knee TECHNIQUE: Imaging protocol: XR Right knee. Views: 3 views. Total images: 3 COMPARISON: CR XR KNEE RT 4V 10/06/2020 2:05 PM FINDINGS: Bones/joints: Osteopenia. No fracture. No blastic or lytic lesions. No significant joint effusion is present. Moderate patellofemoral spurring and mild patellofemoral joint space narrowing. Tibiofemoral compartments are well maintained. Mild medial and lateral joint line spurring. Soft tissues: No periostitis or osteolysis. No gross soft tissue abnormalities. No foreign bodies. Other findings: Normal alignment. IMPRESSION: 1. No acute findings. 2. Moderate patellofemoral spurring and mild spurring at the medial and lateral joint lines. 3. Osteopenia.
--- NOTE | 2021-12-16 16:45 | XR_ITS ---
PROCEDURE INFORMATION: Exam: XR Right Hip Exam date and time: 12/16/2021 4:52 PM Age: 71 years old Clinical indication: Hip pain; Right hip; Additional info: Pain in right hip TECHNIQUE: Imaging protocol: XR Right hip. Views: 2 or 3 views hip with pelvis when performed. Total images: 3 COMPARISON: ABDPELWO CT abdomen pelvis wo con 12/11/2018 8:24 AM FINDINGS: Bones/joints: No fracture. No gross features of bony stress injury. Hip joints are well aligned . Mild right and moderate left central axial joint space narrowing unchanged from CT 12/11/2018. No radiographic evidence to suggest transient osteoporosis or avascular necrosis. No blastic or lytic lesions. The SI joints are unremarkable. The pubic symphysis is unremarkable. Soft tissues: No gross soft tissue abnormalities. Other findings: No gross sacrococcygeal abnormalities. IMPRESSION: 1. No acute findings. 2. Chronic moderate left and mild right joint space narrowing in the hips unchanged from 12/11/2018.
== END ==
LOC: RAD 16:41
PROVIDERS: PCP Family Medicine; Visit Provider Family Medicine
DX: M25.561 Pain in right knee (principal); M25.551 Pain in right hip
CPT/HCPCS: 73502; 73562

== ENCOUNTER 2022-02-18 17:00 | Outpatient (RCR) | payer MEDICARE, SELFPAY | END 2022-02-18 17:05 | disposition home or self-care (01) | LOC: PT 17:00 | PROVIDERS: PCP Family Medicine; Visit Provider Orthopaedic Surgery | DX: M25.551 Pain in right hip (principal); M25.561 Pain in right knee | CPT/HCPCS: 97110; 97163; 97760 ==

== ENCOUNTER 2022-04-07 16:00 | Outpatient (RCR) | payer MEDICARE, SELFPAY ==
--- NOTE | 2022-03-25 15:38 | HMH.PTOPEV ---
PT Outpatient Evaluation Rehab PT Outpatient Evaluation Start: 03/25/22 14:39 Freq: Status: Active Protocol: Document 03/25/22 15:20 BRENDON (Rec: 03/25/22 15:38 BRENDON [id number]) Electronically Signed By Hany Mayer, PT 03/25/22 15:20 Outpatient Therapy Subjective History Subjective History Patient is a 71 year old female presenting to outpatient PT with reports of chronic TMJ pain (L>R) starting approximatly 6 months ago of insidious onset. Patient wears a bite guard at night. Symptoms decribed as popping and grinding mainly on the L side. Patient also reports complaints of popping in her ears, associated with BPPV-like symptoms. Corrected with Meclizine. She also reports possibly associated frontal headaches. Pain noted mostly with opening. Patient reports spasms of B pterygoid and masseter mm OBJECTIVE: patient demonstrates a 3 mm L lateral deviation upon opening the madible; Mouth opening AROM 19mm; Active lateral deviation L 11mm; L 9mm. MMT: R/L lateral deviation 4-/ 5; opening and protrusion 4/5 Chief Complaint Pain,Spasms,Clicks Symptom Type Sharp Symptoms Relieved By Rest/Positioning Symptoms Aggravated By Physical Activity Level of pain today (0-10) 5 Pain scale - at its best (0-10) 2 Pain scale - at its worst (0-10) 8 Outpatient Therapy Assessment Impairments Problems/Impairmments Palpation Tenderness,Impaired Range of Motion,Subjective C/O Pain Prognosis Rehab Potential Good Clinical Impression Consistent with Diagnosis Yes Consistent with TMJ syndrome Short Term Goals Number of Weeks 2 Decrease Subjective C/O Pain Yes: 5/10 at worst Patient to be Ind w/ HEP Yes Halfway Goals Number of Weeks 4-6 Decreased Palpation Tenderness Yes: 1/4 Increase Range of Motion Yes: WNL Increase Strength Yes: 5/5 Decrease Subjective C/O Pain Yes: 2/10 at worst Improve Self
== END 2022-04-07 16:05 | disposition home or self-care (01) ==
LOC: PT 16:00
PROVIDERS: PCP Family Medicine; Visit Provider Student in an Organized Health Care Education/Training Program
DX: S03.00XA Dislocation of jaw, unspecified side, initial encounter (principal); H92.01 Otalgia, right ear
CPT/HCPCS: 97110; 97140; 97163

== ENCOUNTER → 2022-05-24 14:02 | Outpatient (POV) | payer MEDICARE, SELFPAY ==
[2022-05-24 14:29] VITALS: BP 145/68; PULSE 68; RESP 18; TEMP 36.1; O2SAT 99; BMI 39.9
--- NOTE | 2022-05-24 16:18 | EXP.PAIN.OV ---
HPI Data of Consult Patient: new to practice Consult date: 05/24/22 Requesting Physician: Jewell Iqbal APRN Primary Care Provider: Horace Retana MD Consult Narrative Reason for consult: Low back pain, right leg pain, right knee pain History of present illness: Ms. Desir is a 72 year old female who presents today as a new patient. She is a referral from Nestor Murray's office. Today the patient rates her pain a 10 out of 10. She states the pain is primarily in her right leg and right knee however she also has pain in her low back. Patient states that around November she had an episode where she tripped on Josephine carpet and fell. Since this time patient has had continued pain in her right leg and right knee especially with lifting and bending. She describes this as a aching, throbbing sensation that is worse with increased activity. Patient does currently see Dr. Murray where she has gotten knee injections. She states these have provided only temporary relief. Patient has seen physical therapy in the last couple of months however the exercises on the bike and traction did not seem to help. Patient has used ice and heat as well that she states provides some improvement of her symptoms however not long-term. Patient states she cannot tolerate NSAIDs. She has also used Salonpas and IcyHot however these have not provided any additional improvement of her symptoms. She is currently managed with tramadol [address] Retana's office. She denies any side effects from this medication. She states this medication does help provide some relief of her symptoms. Patient also has a history of diabetes and fibromyalgia. Her last A1c on file was 7. Patient does have a history of a left knee replacement in 2002. She stated that she has been told that most likely she will need a right knee replacement in the future. Her Tomas is [id number]. It has been reviewed and appropriate. CC: Jewell Iqbal APRN [facility] Medical History CAD (coronary artery disease) Dyspnea HHD (hypertensive heart disease) HLD (hyperlipidemia) HTN (hypertension) Social History Smoking Status: Never smoker second hand exposure: No alcohol intake: never substance use type: denies use current occupational status: retired Travel in the last 8 weeks: None household members: other housing: house current occupational exposures/hazards: No caffeine: Yes Review of Systems Review of Systems Review of systems:: pertinent systems reviewed and negative unless documented below Review of systems (narrative): Review of Systems: General: No recent weight changes, no fever, no sleep disturbances Respiratory: No cough, no shortness of air, no recurring pulmonary infections Cardiovascular/peripheral vascular: No chest pain, no palpitations, no edema, no shortness of breath Gastrointestinal: No new onset incontinence, normal bowel movements reported Genitourinary: No new onset incontinence Musculoskeletal: Low back pain, right leg pain, right knee pain Psychiatric: [Normal mood/affect] Neurological: [Denies weakness in extremities], [denies balance issues] Meds Home Medications and Allergies Home Medications Medication Instructions Recorded Confirmed Type aspirin 81 mg tablet,delayed 81 mg PO DAILYDM Heart disease 09/01/17 05/24/22 History release lactobacillus combination no.8 3 3,000 each PO DAILYDM SUPPLIMENT 09/01/17 05/24/22 History billion cell capsule multivitamin with minerals 1 each PO DAILYDM VITAMIN 09/01/17 05/24/22 History tramadol 50 mg tablet 50 mg PO Q6H PRN Breakthru Mild 09/01/17 05/24/22 History Pain irbesartan 150 mg tablet 150 mg PO DAILY bp 10/31/18 05/24/22 History coenzyme Q10 100 mg capsule (Co 100 mg PO DAILY Supplement 02/19/19 05/24/22 History Q-10) metformin 500 mg tablet 500 mg PO BID Diabetes 0
== END ==
PROVIDERS: PCP Family Medicine; Visit Provider Nurse Practitioner Family
DX: M51.26 Other intervertebral disc displacement, lumbar region (principal); M47.816 Spondylosis without myelopathy or radiculopathy, lumbar region; M25.551 Pain in right hip; M79.604 Pain in right leg; M25.561 Pain in right knee
CPT/HCPCS: 99202; G0463

== ENCOUNTER 2022-06-01 15:06 | Day surgery (SDC) | payer MEDICARE, SELFPAY ==
[2022-06-01 15:31] VITALS: BP 101/79; PULSE 81; RESP 20; TEMP 36.4; O2SAT 98; BMI 41.5
[2022-06-01 15:42] VITALS: BP 158/87; PULSE 83; RESP 18; O2SAT 98
[2022-06-01 15:43] VITALS: BP 158/87; PULSE 83; RESP 18; O2SAT 98
--- NOTE | 2022-06-01 15:47 | EXP.PAIN.PRO ---
Procedure Date: 06/01/22 Time: 15:47 Anesthesiologist:: Chencho Schumacher CRNA Complications:: None Pre-procedure Diagnosis:: Osteoarthritis right knee Post-procedure Diagnosis:: Same. Indications for Procedure:: Very pleasant 72-year-old female comes our clinic today for right genicular nerve block. Patient is had a history of right knee pain. She describes the pain as constant, dull, achy, sharp and stabbing at times. She rates her pain 10/10. Pain increases significantly with ambulation Procedure Details:: Pre-procedure Diagnosis:: Right knee pain with degenerative osteoarthritis Post-procedure Diagnosis: Same Right knee genicular block Informed consent was obtained and the risk and benefits of the procedure was explained to the patient. The patient was taken to the procedure room. The left knee was prepped using ChloraPrep. I placed 22-gauge needles into the area of the right superior medial genicular nerve, right superior lateral genicular nerve and right inferior medial genicular nerve. Needle placement was confirmed in AP and lateral views with dye. We then injected bupivacaine 0.25% 3 mL's and Depo-Medrol 25 mg into each area of the right superior medial genicular nerve, right superior lateral genicular nerve and right inferior medial genicular nerve. Patient tolerated the procedure well with no complications. Plan and Disposition:: We will follow-up with her in 2 weeks. Will reevaluate symptoms at that time. Plan and Disposition:: Patient was discharged without incident.
[2022-06-01 15:50] VITALS: BP 129/58; PULSE 79; RESP 20; O2SAT 97
== END 2022-06-01 15:50 | disposition home or self-care (01) ==
PROVIDERS: PCP Family Medicine; Visit Provider Nurse Anesthetist, Certified Registered
DX: M17.11 Unilateral primary osteoarthritis, right knee (principal)
CPT/HCPCS: 64454; J1040

== ENCOUNTER → 2022-07-08 13:30 | Outpatient (POV) | payer MEDICARE, SELFPAY ==
[2022-07-08 14:08] VITALS: BP 108/84; PULSE 82; RESP 18; O2SAT 97; BMI 41.5
--- NOTE | 2022-07-08 15:24 | EXP.PAIN.SOA ---
[facility] Pain Management SOAP Note Subjective:: Patient is a pleasant 72-year-old female who presents today for follow-up of right knee genicular nerve block on 06/01/2022. We are currently treating the patient for low back pain, degenerative disc disease of lumbar spine, right knee pain. Today the patient states that she has had approximately 90% relief following this injection lasting for approximately 1 month. Today the patient rates her pain a 8 out of 10. She states that she does feel like she is back to her baseline. Patient denies any new trauma or injury. Patient states she feels like the pain has worsened since she is had her fall in November. Patient does describe this as a achy, throbbing sensation with occasional sharp and shooting pains. Patient did have a x-ray with no acute findings other than spurring and osteopenia at that time. Patient is concerned that she may have done something more significant to her knee. Patient has gotten knee injections in the past from Dr. Murray however she states these only provided temporary relief. Patient has seen physical therapy within the last couple of months however she did not notice significant improvement of her symptoms. Patient continues to use heat and ice with some improvement. Patient has used Salonpas and IcyHot with no improvement of her symptoms. Patient states she is unable to tolerate any NSAIDs. She is currently prescribed tramadol [address] Retana's office. Patient denies any side effects from this medication. She states this medication does help with her pain symptoms. Patient states she has a history of diabetes and fibromyalgia. Patient is a diabetic with her last A1c being 7. Patient does have a history of left knee replacement 2002 and states that most likely she will need a right knee in the future. Her Tomas is [id number]. It has been reviewed and appropriate. Review of Systems: General: No recent weight changes, no fever, no sleep disturbances Respiratory: No cough, no shortness of air, no recurring pulmonary infections Cardiovascular/peripheral vascular: No chest pain, no palpitations, no edema, no shortness of breath Gastrointestinal: No new onset incontinence, normal bowel movements reported Genitourinary: No new onset incontinence Musculoskeletal: Right knee pain Psychiatric: [Normal mood/affect] Neurological: [Denies weakness in extremities], [denies balance issues] Objective:: Physical Exam: General: Alert and oriented x3, no acute distress, pleasant and cooperative Lungs: Respirations even and unlabored, symmetrical chest expansion Eyes: PERRL Musculoskeletal: Flexion and extension of right knee] somewhat guarded secondary to pain, [antalgic gait noted] Neurological: Speech clear, no gross sensory deficit Assessment:: Degenerative disc disease of lumbar spine, right knee pain Plan:: Patient continues to experience significant pain in her right knee following a fall in November. Patient did have limited range of motion during today's visit. I have discussed with the patient that I will order a right knee MRI without contrast. Patient did have 90% improvement of her pain symptoms in her right knee following a genicular nerve block. I have discussed with the patient that she may benefit from a second injection. Risk and benefits were discussed with the patient. She would like to proceed forward with this plan of care. Patient is not on any blood thinners. We will schedule the patient for her second right knee genicular nerve block with the plan to proceed forward with a genicular RFA in the future. Patient has been instructed to contact the clinic with any concerns before the next appointment. Dr. Sahu has reviewed this note and agrees with this plan of care. This note was dictated using voice recognition software and make contain errors or omissions. [facility] Medical History CAD (coronary artery disease) Dyspn
== END ==
PROVIDERS: PCP Family Medicine; Visit Provider Nurse Practitioner Family
DX: M51.36 Other intervertebral disc degeneration, lumbar region (principal); M25.561 Pain in right knee
CPT/HCPCS: 99212; G0463

== ENCOUNTER 2022-07-16 14:25 | Day surgery (SDC) | payer MEDICARE, SELFPAY ==
[2022-07-16 14:37] VITALS: BP 123/62; BP 152/74; PULSE 70; PULSE 80; RESP 20; TEMP 36.3; O2SAT 96; BMI 40.3
[2022-07-16 14:48] VITALS: BP 159/60; PULSE 75; RESP 18; O2SAT 97
[2022-07-16 14:49] VITALS: BP 159/60; PULSE 75; RESP 18; O2SAT 97
--- NOTE | 2022-07-16 15:14 | EXP.PAIN.PRO ---
Procedure Date: 07/16/22 Time: 15:00 Anesthesiologist:: Chencho Schumacher CRNA Complications:: None Pre-procedure Diagnosis:: Osteoarthritis right knee. Post-procedure Diagnosis:: Same. Indications for Procedure:: Very pleasant 72-year-old female that comes our clinic today for right genicular nerve block. She has had this once before with significant improvement lasting 2 months. She complains of right knee pain with ambulation. She describes as constant, dull, sharp and stabbing at times. She rates the pain 8/10 Procedure Details:: Procedure Details: Right knee genicular block Informed consent was obtained and the risk and benefits of the procedure was explained to the patient. The patient was taken to the procedure room. The left knee was prepped using ChloraPrep. I placed 22-gauge needles into the area of the right superior medial genicular nerve, right superior lateral genicular nerve and right inferior medial genicular nerve. Needle placement was confirmed in AP and lateral views with dye. We then injected bupivacaine 0.25% 3 mL's and Depo-Medrol 25 mg into each area of the right superior medial genicular nerve, right superior lateral genicular nerve and right inferior medial genicular nerve. Patient tolerated the procedure well with no complications. Plan and Disposition:: We will follow-up with her in 2 weeks. Will reevaluate symptoms at that time. Plan and Disposition:: Patient ambulated out of the clinic without pain today.
== END 2022-07-16 15:02 | disposition home or self-care (01) ==
LOC: SC.PAINP 14:26
PROVIDERS: PCP Family Medicine; Visit Provider Nurse Anesthetist, Certified Registered
DX: M17.11 Unilateral primary osteoarthritis, right knee (principal)
CPT/HCPCS: 64454; J1040

== ENCOUNTER → 2022-07-26 14:24 | Outpatient (CLI) | payer MEDICARE, SELFPAY ==
--- NOTE | 2022-07-26 14:28 | MR_ITS ---
FINAL REPORT TECHNIQUE: Multiplanar MR without contrast of the right knee. CLINICAL HISTORY: RIGHT KNEE PAIN. PATIENT FELL ON KNEE 7MONTHS AGO. MEDIAL SIDED KNEE PAIN. KNEE LOCKS UP. FINDINGS: Articular cartilage: Moderate to severe diffuse thinning of all 3 compartments. Marrow signal: Normal. Joint fluid: Moderate joint effusion. Menisci: There is a longitudinal tear involving the anterior horn of the lateral meniscus. There is a moderate size complex tear of the posterior horn of the medial meniscus. Ligaments: Collateral and cruciate and patellofemoral ligaments intact. There is mild prepatellar bursitis. IMPRESSION: Moderate size tear of the posterior horn of the medial meniscus with a small tear of the anterior horn of the lateral meniscus. Moderate to severe tricompartmental osteoarthritic disease. Reviewed, Interpreted and Dictated by Meron Rosales MD Transcribed by Kaylin Garcia Authenticated and [facility]
== END ==
LOC: RAD 14:24
PROVIDERS: PCP Family Medicine; Visit Provider Nurse Practitioner Family
DX: M25.561 Pain in right knee (principal)
CPT/HCPCS: 73721

== ENCOUNTER → 2022-08-02 14:57 | Outpatient (POV) | payer MEDICARE, SELFPAY ==
[2022-08-02 15:04] VITALS: BP 129/62; PULSE 77; RESP 18; O2SAT 94; BMI 41.5
--- NOTE | 2022-08-02 15:41 | EXP.PAIN.SOA ---
[facility] Pain Management SOAP Note Subjective:: Patient is a pleasant 72-year-old female who presents today for follow-up of right genicular nerve block on 07/16/2022. We are currently treating the patient for osteoarthritis of the right knee, degenerative disc disease of lumbar spine, low back pain. Today the patient states that she has had at least 75 to 80% relief following this procedure and feels like it is continuing to provide improvement. Patient does rate her pain today a 3 out of 10. Patient denies any new trauma or injury. Patient denies any change location or type of pain she experiences. Patient does state that she continues to have throbbing in her right knee that radiates. Patient had previously been seen Dr. Murray for some of her Ortho related issues. Patient has been to physical therapy within the last couple of months however she did not notice significant improvement of her symptoms.? Patient does use heat and ice with some improvement. Patient does use yzcs-vos-oxpvken creams such as Salonpas and IcyHot with no improvement of her symptoms.? Patient states she is unable to tolerate any NSAIDs.? She is currently prescribed tramadol [address] Retana's office.? Patient denies any side effects from this medication.? She states this medication does help with her pain symptoms.? Patient is a diabetic and has a history of fibromyalgia.? Review of Systems: General: No recent weight changes, no fever, no sleep disturbances Respiratory: No cough, no shortness of air, no recurring pulmonary infections Cardiovascular/peripheral vascular: No chest pain, no palpitations, no edema, no shortness of breath Gastrointestinal: No new onset incontinence, normal bowel movements reported Genitourinary: No new onset incontinence Musculoskeletal: Right knee pain Psychiatric: [Normal mood/affect] Neurological: [Denies weakness in extremities], [denies balance issues] Objective:: Physical Exam: General: Alert and oriented x3, no acute distress, pleasant and cooperative Lungs: Respirations even and unlabored, symmetrical chest expansion Eyes: PERRL Musculoskeletal: Flexion and extension of right knee somewhat guarded secondary to pain, [antalgic gait noted] Neurological: Speech clear, no gross sensory deficit TECHNIQUE: Multiplanar MR without contrast of the right knee. CLINICAL HISTORY: RIGHT KNEE PAIN. PATIENT FELL ON KNEE 7MONTHS AGO. MEDIAL SIDED KNEE PAIN. KNEE LOCKS UP. FINDINGS: Articular cartilage:? Moderate to severe diffuse thinning of all 3 compartments.? Marrow signal:? Normal.? Joint fluid:? Moderate joint effusion.? Menisci:? There is a longitudinal tear involving the anterior horn of the lateral meniscus.? There is a moderate size complex tear of the posterior horn of the medial meniscus.? Ligaments: Collateral and cruciate and patellofemoral ligaments intact.? There is mild prepatellar bursitis. IMPRESSION: Moderate size tear of the posterior horn of the medial meniscus with a small tear of the anterior horn of the lateral meniscus. Moderate to severe tricompartmental osteoarthritic disease. Reviewed, Interpreted and Dictated by Meron Rosales MD Transcribed by Kaylin Garcia Authenticated and [facility] Assessment:: Low back pain, right knee pain, degenerative disc disease of lumbar spine, medial and lateral meniscus tear right knee Plan:: Patient has had significant improvement of her pain symptoms along her right knee but she continues to experience significant throbbing with radiating symptoms. Patient did have limited range of motion of her right knee during today's visit. Patient's MRI of her right knee did show medial and lateral meniscus tears and osteoarthritis. I have discussed with the patient that she may benefit from right knee arthroscopy. I have discussed with the patient regarding sending her for a referral to Dr. Iqbal here at [facility]
== END ==
PROVIDERS: PCP Family Medicine; Visit Provider Nurse Practitioner Family
DX: M51.36 Other intervertebral disc degeneration, lumbar region (principal); S83.241A Other tear of medial meniscus, current injury, right knee, initial encounter; S83.206A Unspecified tear of unspecified meniscus, current injury, right knee, initial encounter; Z79.899 Other long term (current) drug therapy
CPT/HCPCS: 99212; G0463

== ENCOUNTER → 2022-08-26 12:41 | Outpatient (CLI) | payer MEDICARE, SELFPAY ==
--- NOTE | 2022-08-26 12:46 | XR_ITS ---
FINAL REPORT CLINICAL HISTORY: knee pain COMPARISON: November 2021 FINDINGS: 3 views of the right knee were obtained. There is no acute fracture or dislocation. There are becs-wl-tvxbsoho degenerative changes. There is no soft tissue abnormality. IMPRESSION: Sxie-fj-jcxjefao degenerative change, stable. Reviewed, Interpreted and Dictated by Coleman Angela III, MD Transcribed by Al Ji Authenticated and . [facility]
== END ==
LOC: RAD 12:42
PROVIDERS: PCP Family Medicine; Visit Provider Orthopaedic Surgery
DX: M79.604 Pain in right leg (principal); M25.561 Pain in right knee
CPT/HCPCS: 73562

== ENCOUNTER → 2022-09-13 14:07 | Outpatient (POV) | payer MEDICARE, SELFPAY ==
[2022-09-13 14:20] VITALS: BP 131/66; PULSE 87; RESP 18; O2SAT 97; BMI 41.5
--- NOTE | 2022-09-13 14:20 | EXP.PAIN.SOA ---
[facility] Pain Management SOAP Note Subjective:: Patient is a pleasant 72-year-old female who presents today for follow-up. We are currently treating the patient for osteoarthritis of the right knee, degenerative disc disease of lumbar spine, low back pain. Today the patient rates her pain 6 out of 10. Patient denies any new injury or trauma. Patient denies any change of location or pain she experiences. Patient was recently saw Dr. Iqbal orthopedic surgeon and states that at this time she wants to try more conservative methods to treat her knee pain. Patient has had 2 right genicular nerve blocks that has provided 75 to 80% relief following the procedures.. Patient does describe this as a throbbing radiating pain in her right knee. Patient has tried physical therapy within the last couple of months however she does not get significant improvement of her symptoms. Patient does use heat and ice with some improvement. Patient does use ktml-swi-eltpyml creams such as Salonpas and ice hot with some improvement. Patient is not able to tolerate NSAIDs. She has been prescribed tramadol in the past with minimal improvement. Patient does have a history of fibromyalgia and patient is a diabetic. [facility] #[id number] reviewed and appropriate. Review of Systems: General: No recent weight changes, no fever, no sleep disturbances Respiratory: No cough, no shortness of air, no recurring pulmonary infections Cardiovascular/peripheral vascular: No chest pain, no palpitations, no edema, no shortness of breath Gastrointestinal: No new onset incontinence, normal bowel movements reported Genitourinary: No new onset incontinence Musculoskeletal: Right knee pain Psychiatric: [Normal mood/affect] Neurological: [Denies weakness in extremities], [denies balance issues] Objective:: Physical Exam: General: Alert and oriented x3, no acute distress, pleasant and cooperative Lungs: Respirations even and unlabored, symmetrical chest expansion Eyes: PERRL Musculoskeletal: Flexion and extension of right knee somewhat guarded secondary to pain, [antalgic gait noted] Neurological: Speech clear, no gross sensory deficit ORT reviewed and minimal risk. Assessment:: osteoarthritis of the right knee, degenerative disc disease of lumbar spine, low back pain Plan:: Patient continues to experience significant pain along her right knee with limited range of motion. I have discussed with the patient that she may benefit from diagnostic genicular RFA. Patient has had 2 genicular nerve blocks with significant relief of over 80%. Patient has tried and failed conservative therapy such as oral medications, heat and ice, topicals, physical therapy and at home stretching and exercise for longer than 6 weeks. Risk and benefits were discussed with the patient. She would like to proceed forward with this plan of care. Patient does not take any blood thinners. We will schedule the patient for a right genicular RFA. Patient has been instructed to contact the clinic with any concerns before the next appointment. Dr. Sahu has reviewed this note and agrees with this plan of care. This note was dictated using voice recognition software and make contain errors or omissions. [facility] Disclaimer: The information contained in this section may have been updated after the patient was seen, as this information can be updated by other users. Medical History CAD (coronary artery disease) Dyspnea HHD (hypertensive heart disease) HLD (hyperlipidemia) HTN (hypertension) Family History Other No significant family history Social History Smoking Status: Never smoker second hand exposure: No alcohol intake: never substance use type: denies use current occupational status: retired Travel in the last 8 weeks: None household members: other
== END ==
PROVIDERS: PCP Family Medicine; Visit Provider Nurse Practitioner Family
DX: M51.36 Other intervertebral disc degeneration, lumbar region (principal); M17.11 Unilateral primary osteoarthritis, right knee
CPT/HCPCS: 99212; G0463

== ENCOUNTER 2022-09-21 14:06 | Day surgery (SDC) | payer MEDICARE, SELFPAY ==
[2022-09-21 14:21] VITALS: BP 151/69; PULSE 85; RESP 18; TEMP 36.6; O2SAT 97; BMI 39.1
[2022-09-21 14:28] VITALS: BP 169/76; PULSE 83; RESP 18; O2SAT 97
[2022-09-21 14:29] VITALS: BP 169/76; PULSE 83; RESP 18; O2SAT 98
--- NOTE | 2022-09-21 14:46 | P.PCN_ITS ---
Procedure Date: 09/21/22 Time: 14:50 Anesthesiologist:: Chencho Schumacher CRNA Complications:: None Pre-procedure Diagnosis:: Osteoarthritis right knee Post-procedure Diagnosis:: Same Indications for Procedure:: Very pleasant 72-year-old female comes our clinic today for right genicular radiofrequency ablation. Patient had successful right genicular nerve blocks x2. She complains of right knee pain that she says has been worsening by the year. She rates her pain 8/10. Patient has difficulty with ambulation due to the pain. Standing for any length of time increases pain significantly Procedure Details:: Procedure Details: Right knee genicular RFA Informed consent was obtained risk and benefits of the procedure were explained to the patient. Patient was taken the procedure room. The right knee was prepped using ChloraPrep. The skin and subcutaneous tissues were anesthetized using lidocaine. I placed 20-gauge RF needles into the superior lateral genicular nerve area of the superior medial genicular nerve area and inferior medial genicular nerve area we underwent sensory stimulation. There is good sensory stimulation at 1 V. We underwent motor stimulation. There was no motor stimulation at 3 V. We then anesthetized all 3 nerves with bupivacaine and Depo- Medrol. We then burned each genicular nerve superior lateral, superior medial and inferior medial 80 ?C for 4 minutes. Patient tolerated procedure well with no complications. Plan and Disposition:: Patient was discharged without pain.
[2022-09-21 14:50] VITALS: BP 163/84; PULSE 79; RESP 18; O2SAT 97
== END 2022-09-21 14:50 | disposition home or self-care (01) ==
PROVIDERS: PCP Family Medicine; Visit Provider Nurse Anesthetist, Certified Registered
DX: M17.11 Unilateral primary osteoarthritis, right knee (principal)
CPT/HCPCS: 64454; J1040

== ENCOUNTER → 2022-10-21 13:36 | Outpatient (POV) | payer MEDICARE, SELFPAY ==
--- NOTE | 2022-10-21 13:52 | EXP.PAIN.SOA ---
[facility] Pain Management SOAP Note Subjective:: Patient is a pleasant 72-year-old female who presents today for follow-up of right genicular radiofrequency ablation on 09/21/2022. We are currently treating the patient for osteoarthritis right knee, degenerative disc disease of lumbar spine with lumbar radiculopathy symptoms, low back pain. Today she states she has had at least 80% improvement from the genicular ablation and states it still continuing to provide additional relief. Patient rates her pain today a 2 out of 10. Patient states that her pain is in her left knee. Patient describes this as a aching, throbbing sensation that is worse with increased activity. Patient states she had this knee replaced 20 years ago by a physician at [facility]. Patient states that this joint had been doing fine up until her right knee pain started. Patient states that she feels like she was overcompensating for her right knee pain which causes now of the left knee to have significant pain. Patient does state this affects her ability to perform activities of daily living. Patient states she frequently cannot stand prolonged standing or walking due to the pain. Patient states that she has not seen any orthopedic physicians for her left knee pain. She previously was told that total joint replacements generally last around 20 years and she is wondering whether or not if she will have to do a revision of this procedure. Patient does use epdh-rye-yhohmlz Tylenol along with Salonpas and IcyHot for temporary relief. Patient does have a history of fibromyalgia and is diabetic. Her Tomas is [id number]. Its been reviewed and appropriate. Review of Systems: General: No recent weight changes, no fever, no sleep disturbances Respiratory: No cough, no shortness of air, no recurring pulmonary infections Cardiovascular/peripheral vascular: No chest pain, no palpitations, no edema, no shortness of breath Gastrointestinal: No new onset incontinence, normal bowel movements reported Genitourinary: No new onset incontinence Musculoskeletal: Left knee pain Psychiatric: [Normal mood/affect] Neurological: [Denies weakness in extremities], [denies balance issues] Objective:: Physical Exam: General: Alert and oriented x3, no acute distress, pleasant and cooperative Lungs: Respirations even and unlabored, symmetrical chest expansion Eyes: PERRL Musculoskeletal: Flexion and extension of left knee somewhat guarded secondary to pain, [antalgic gait noted] Neurological: Speech clear, no gross sensory deficit Assessment:: Osteoarthritis bilateral knees, degenerative disc disease of lumbar spine with lumbar radiculopathy symptoms, low back pain Plan:: Patient is experiencing significant pain in her left knee with limited range of motion. I have discussed with the patient that she may benefit from a left genicular nerve block. Risk and benefits were discussed with the patient and she would like to proceed forward with this plan of care. I will also order x-ray imaging of her left knee and will discuss in the future regarding sending her for a orthopedic referral. I have also discussed with the patient that she may benefit from physical therapy in the future. Patient will be scheduled for a left genicular nerve block. Patient has been instructed to contact the clinic with any concerns before the next appointment. Dr. Sahu has reviewed this note and agrees with this plan of care. This note was dictated using voice recognition software and make contain errors or omissions. [facility] Disclaimer: The information contained in this section may have been updated after the patient was seen, as this information can be updated by other users. Medical History CAD (coronary artery disease) Dyspnea HHD (hypertensive heart disease) HLD (hyperlipidemia) HTN (hypertension) Family History (Reviewed 08/26/22 @ 18:00 by Anthony Iqbal DO
[2022-10-21 14:11] VITALS: BP 135/72; PULSE 100; RESP 20; BMI 41.5
== END ==
PROVIDERS: PCP Family Medicine; Visit Provider Nurse Practitioner Family
DX: M51.16 Intervertebral disc disorders with radiculopathy, lumbar region (principal); M17.0 Bilateral primary osteoarthritis of knee
CPT/HCPCS: 99212; G0463

== ENCOUNTER → 2022-11-24 16:11 | Outpatient (CLI) | payer MEDICARE, SELFPAY ==
--- NOTE | 2022-11-24 16:16 | MM_ITS ---
PROCEDURE INFORMATION: Exam: MG Bilateral Screening 3D Mammography Exam date and time: 11/24/2022 4:11 PM Age: 72 years old Clinical indication: Screening examination. Her sister had breast cancer. TECHNIQUE: Imaging protocol: Bilateral Screening tomosynthesis and 2D mammography including computer-aided detection (CAD) when performed. COMPARISON: 1. MG MM DIG MAMM DX UNILAT RT CAD 08/07/2019 2:33 PM 2. MG MM DIG SCREENING MAMM BI W/CAD 06/25/2019 1:18 PM 3. MG SCBI MM Dig screening mamm BI w/CAD 06/01/2018 2:12 PM 4. MG DMDXUR DIG MAMM-DX UNI-RT W/CAD 08/11/2017 1:23 PM FINDINGS: MAMMOGRAPHY: Breast composition: There are scattered areas of fibroglandular density. Mass: No suspicious mass. Architectural distortion: None. Calcifications: No suspicious calcifications. Asymmetric density: None. Skin thickening: None. Axillary adenopathy: None. Other: Right biopsy clip. IMPRESSION: No mammographic evidence of malignancy. Annual screening is recommended unless otherwise clinically indicated. ASSESSMENT: BI-RADS Category 2: Benign
== END ==
PROVIDERS: PCP Family Medicine; Visit Provider Family Medicine
DX: Z12.31 Encounter for screening mammogram for malignant neoplasm of breast (principal)
CPT/HCPCS: 77063; 77067

== ENCOUNTER 2022-11-30 13:53 | Day surgery (SDC) | payer MEDICARE, SELFPAY ==
[2022-11-30 14:11] VITALS: BP 161/86; PULSE 86; RESP 18; TEMP 36.7; O2SAT 97; BMI 41.5
[2022-11-30 14:26] VITALS: BP 165/70; PULSE 74; RESP 18; O2SAT 97
[2022-11-30 14:28] VITALS: BP 165/70; PULSE 74; RESP 18; O2SAT 97
[2022-11-30 14:30] VITALS: BP 154/66; PULSE 73; RESP 18; O2SAT 98
--- NOTE | 2022-11-30 14:32 | EXP.PAIN.PRO ---
Procedure Date: 11/30/22 Time: 14:33 Anesthesiologist:: Chencho Schumacher CRNA Complications:: None Pre-procedure Diagnosis:: Degenerative osteoarthritis left knee. Status post left total knee replacement. Chronic left knee pain. Post-procedure Diagnosis:: Same. Indications for Procedure:: Patient is a pleasant 72-year-old female comes our clinic today for left genicular nerve block. Patient has had left total knee replacement in the past. She is still suffering with chronic left knee pain she describes as constant, dull, sharp and stabbing at times. She has difficulty with ambulation. She rates her pain 9/10. Patient is status post right genicular nerve block in the past with significant improvement in her overall right knee pain. Procedure Details:: Informed consent was obtained and the risk and benefits of the procedure was explained to the patient. The patient was taken to the procedure room. The left knee was prepped using ChloraPrep. I placed 22-gauge needles into the area of the left superior medial genicular nerve, left superior lateral genicular nerve and left inferior medial genicular nerve. Needle placement was confirmed in AP and lateral views with dye. We then injected bupivacaine 0.25% 3 mL's and Depo-Medrol 25 mg into each area of the left superior medial genicular nerve, left superior lateral genicular nerve and left inferior medial genicular nerve. Patient tolerated the procedure well with no complications. Plan and Disposition:: Patient was discharged without incident.
== END 2022-11-30 14:34 | disposition home or self-care (01) ==
PROVIDERS: PCP Family Medicine; Visit Provider Nurse Anesthetist, Certified Registered
DX: M17.12 Unilateral primary osteoarthritis, left knee (principal); M25.562 Pain in left knee; G89.29 Other chronic pain; Z96.652 Presence of left artificial knee joint
CPT/HCPCS: 64454; J1040

== ENCOUNTER → 2023-01-03 14:11 | Outpatient (POV) | payer MEDICARE, SELFPAY ==
--- NOTE | 2023-01-03 14:32 | EXP.PAIN.SOA ---
[facility] Pain Management SOAP Note Subjective:: Patient is a pleasant 72-year-old female who presents today for follow-up of left genicular nerve block on 11/30/2022. We are currently treating the patient for osteoarthritis bilateral knees, degenerative disc disease of lumbar spine with lumbar radiculopathy symptoms, low back pain. Today she states that she has had at least 90 to 95% improvement in her left knee pain symptoms following this injection. She states she has been able to increase her activity with less pain. She does rate her pain today a 10 out of 10 now and states that pain is in reference to her right knee. She does describe this as an aching, throbbing sensation that is worse with increased activity. She states that she does also have swelling in her right ankle by the end of the day. She states that she did go see Dr. Iqbal here at [facility] however he was not recommending surgical intervention. She states that she previously had a right knee tear. Patient has continued to try and use ywma-msa-wzmdorj Tylenol along with topicals such as Salonpas and IcyHot with minimal improvement. She does state her pain interferes with her ability to perform activities of daily living such as cooking and cleaning. Patient does have a history of fibromyalgia and is diabetic. She states that her doctor did recently change some of her medications and added Singulair and Xyzal for her allergies. She states he also changed her cholesterol medication. She states she is scheduled to have updated lab work however she has not gotten it done at this time. Patient is currently managed with tramadol 50 mg 4 times a day with a 6-day supply of this medication along with gabapentin 100 mg twice a day from her primary care. Patient denies any side effects from these medications. Her Tomas is [id number]. Its been reviewed and appropriate. Review of Systems: General: No recent weight changes, no fever, no sleep disturbances Respiratory: No cough, no shortness of air, no recurring pulmonary infections Cardiovascular/peripheral vascular: No chest pain, no palpitations, no edema, no shortness of breath Gastrointestinal: No new onset incontinence, normal bowel movements reported Genitourinary: No new onset incontinence Musculoskeletal: Right knee pain Psychiatric: [Normal mood/affect] Neurological: [Denies weakness in extremities], [denies balance issues] Objective:: Physical Exam: General: Alert and oriented x3, no acute distress, pleasant and cooperative Lungs: Respirations even and unlabored, symmetrical chest expansion Eyes: PERRL Musculoskeletal: Flexion and extension of right knee somewhat guarded secondary to pain, [antalgic gait noted] Neurological: Speech clear, no gross sensory deficit Assessment:: Osteoarthritis bilateral knees, degenerative disc disease of lumbar spine with lumbar radiculopathy symptoms, low back pain Plan:: Patient has had 90 to 95% improvement in her left knee pain symptoms however she is experiencing worsening right knee pain. I will send in a prescription of tizanidine 4 mg at bedtime and provide a 1 month supply of this medication. I have counseled the patient to make sure that she is using compression socks to minimize swelling in her right ankle as well as to prop her feet up when she is home for the day. I will send in a referral to [facility] for a second opinion for possible surgical intervention for her right knee pain/tear. Patient will follow-up in 1 month for reevaluation of symptoms and plan of care. Patient has been instructed to contact the clinic with any concerns before the next appointment. Dr. Sahu has reviewed this note and agrees with this plan of care. This note was dictated using voice recognition software and make contain errors or omissions. [facility] Disclaimer: The information contained in this section may have been updated after the patient was seen, as this information can be updated by other users.
[2023-01-03 14:58] VITALS: BP 145/64; PULSE 81; RESP 18; O2SAT 98; BMI 46.0
== END | disposition home or self-care (01) ==
PROVIDERS: PCP Family Medicine; Visit Provider Nurse Practitioner Family
DX: M51.16 Intervertebral disc disorders with radiculopathy, lumbar region (principal); M17.0 Bilateral primary osteoarthritis of knee
CPT/HCPCS: 99212; G0463

== ENCOUNTER → 2023-04-19 13:07 | Outpatient (POV) | payer MEDICARE, SELFPAY | PROVIDERS: Visit Provider Specialist/Technologist | DX: Z00.00 Encounter for general adult medical examination without abnormal findings (principal) ==

== ENCOUNTER → 2023-06-09 13:37 | Outpatient (CLI) | payer MEDICARE, SELFPAY ==
--- NOTE | 2023-06-09 13:47 | CA_ITS ---
APPROVED REPORT EXAM: Comprehensive 2D, Doppler, and color-flow Echocardiogram Cake Press Operator: Jaci Joens RT(R) Ht: 5 ft 6 in Wt: 270lbs BSA: 2.27 BP: 126/75 mmHg Indications: SOB, HTN, hyperlipidemia, CAD, GERD, CABG, obesity 2D Dimensions LVOT 2.06 cm (M/F) 1.5-2.5 LVEF (Jaimes's) 58.60 % F: 54 - 74 LV Volume 124.70 mL F: 46 - 106 LV Volume Index 54.93 mL/m2 F: 29 - 61 LA Volume 45.60 mL LA Volume Index 20.09 mL/m2 (M/F) 16-34 M-Mode Dimensions RVDd 2.71 cm (0.9-2.6) LA Diam 4.35 cm (1.9-4.0) LVDd 5.03 cm (3.5-5.7) Ao Diam 3.49 cm (2.0-3.7) LVDs 3.68 cm (3.5-5.7) IVSd 1.23 cm (0.6-1.1) PWd 0.76 cm (0.6-1.1) EF (Teich) 52.10% FS 26.80% EDV (Teich) 119.90 mL ESV (Teich) 57.40 mL LV Diastology E Decel Time 343.00 (160-240 msec) E/A Ratio 0.74 MED E' 8.10 (< 7 cm/sec) E'/MED E' Ratio 7.62 (>14) LAT E' 13.00 (<10 cm/sec) E/LAT E' Ratio 4.75 (>14) Mitral Valve MV A Velocity 83.00 (40-130 cm/s) E/A Ratio 0.74 MV Decel. Time 343.00 (160-240 ms) Left Ventricle The left ventricle is normal size. The left ventricular systolic function is normal. The left ventricular ejection fraction is within the normal range. There is normal left ventricular wall thickness. There is normal LV segmental wall motion. The left ventricular diastolic function is normal. LVEF is 55%. Right Ventricle The right ventricle is normal size. The right ventricular systolic function is normal. Atria The left atrium size is normal. The right atrium size is normal. There is no Doppler evidence of interatrial shunt. Aortic Valve The aortic valve is mildly thickened. There is no aortic valvular stenosis. No aortic regurgitation is present. Mitral Valve The mitral valve is mildly thickened. No evidence of mitral valve stenosis. Trace mitral regurgitation. Tricuspid Valve The tricuspid valve leaflets are thin and pliable. Trace tricuspid regurgitation. RVSP is normal. Pulmonic Valve The pulmonic valve is not well visualized. Trace pulmonic regurgitation. Great Vessels The aortic root is normal in size. The ascending aorta is not well visualized. IVC is normal in size and collapses >50% with inspiration. Pericardium There is no pericardial effusion. Other Information Study Quality: Technically Difficult Conclusion This is a technically difficult study due to poor acoustic windows. Normal biventricular systolic function. No significant valvular stenosis or regurgitation. Electronically signed by : Liz Daly MD 06/11/2023 21:08:16
== END ==
PROVIDERS: PCP Family Medicine; Visit Provider Nurse Practitioner
DX: R06.02 Shortness of breath (principal)
CPT/HCPCS: 93306

== ENCOUNTER 2024-04-24 07:29 | Outpatient (CLI) | payer MEDICARE, SELFPAY ==
--- NOTE | 2024-04-24 07:30 | CA_ITS ---
APPROVED REPORT Exam: Pharmacologic Technologist: Merary To, Ht: 5 ft 5 in Wt: 255 lbs BSA: 2.19 m2 HR: 70 bpm BP: 148/68 mmHg Rhythm: SR Medical History Medications: Omeprazole,,,,, Irbesartan,,,,, Aspirin,,,,, Metoprolol,,,,, Metformin,,,,, Atorvastatin,,,,, Tramadol,,,,, Cyclobenzaprine,,,,, Celeoxib,,,,, AZelastine,,,,, Sertaline,,,,, Cardiac Risk Factors: HTN, Hyperlipidemia Stress Test Details Test: LEXISCAN HR Resting HR: 76 bpm Max Heart Rate (APMHR): 146 bpm Max HR Achieved: 109 bpm Target HR (85% APMHR): 124 bpm % of APMHR: 75 Recovery HR: 90 bpm BP Resting BP: 148.0/69.0 mmHg Max BP: 166.0/79.0 mmHg Recovery BP: 153.0/68.0 mmHg ECG Resting ECG: SR Stress ECG: No significant ST changes Arrhythmia: None Clinical Exercise duration: 04:01 min Highest Stage Achieved: Stress ECG Conclusion During lexiscan pt experinced dyspnea. No arrhythmias noted. No significant ST changes. EKG unremarkable due to lexiscan infusion. Test Summary REST . . . . . . . Sitting REST 02:13 . . 76 . 148/ 69 . . Stage 1 . . . . . . . Myoview Injected Stage 1 01:00 . . 100 . . . . Stage 2 01:00 . . 102 . . . . Stage 3 01:00 . . 91 . 166/ 79 . . Stage 4 01:00 . . 90 . 147/ 77 . . Stage 4 01:01 . . 90 . 147/ 77 . Stop exercise at 04:01 RECOVERY 01:00 . . 81 . 153/ 86 . . RECOVERY 02:00 . . 80 . 153/ 68 . . RECOVERY 02:05 . . 81 . 153/ 68 . . Electronically signed by : Liz Daly MD 04/25/2024 13:44:54
--- NOTE | 2024-04-24 07:30 | CA_ITS ---
APPROVED REPORT EXAM: Comprehensive 2D, Doppler, and color-flow Echocardiogram Brand Strategy Manager: YISEL Terry, RVS Ht: 5 ft 5 in Wt: 255lbs BSA: 2.19 BP: 152/66 mmHg Indications: CAD-OHS/CABG, DD, HFrEF, DM, HTN, HLD Echo Enhancing Agent Comments: TDS: Large body habitus 2D Dimensions LVDd 3.71 cm LVEF (Visual) 63.40 % LVDs 2.46 cm LA Volume 59.40 mL Left Atrium 3.55 cm LA Volume Index 26.40 mL/m2 (M/F) 16-34 M-Mode Dimensions RVDd 2.25 cm (0.9-2.6) LA Diam 3.19 cm (1.9-4.0) LVDd 5.30 cm (3.5-5.7) LVDs 3.48 cm (3.5-5.7) IVSd 1.44 cm (0.6-1.1) PWd 1.02 cm (0.6-1.1) EF (Teich) 62.90% EPSs 0.81 cm FS 34.30% EDV (Teich) 135.30 mL TAPSE 2.15 (<1.7) ESV (Teich) 50.20 mL LV Diastology E Decel Time 210 (160-240 msec) E/A Ratio 0.89 MED A' 7.60 cm/s LAT A' 10.00 cm/s Aortic Valve JUAN Index 0.96 cm2/m2 AoV Peak Sancho. 157.0 (50-130 cm/s) AO Peak GR. 9.90 mmHg AO Mean GR. 4.90 (<5 mmHg) AO VTI 32.2 (18-25 cm) JUAN (VTI) 2.16 (2.5-4.5 cm2) Mitral Valve MV A Velocity 88.0 (40-130 cm/s) E/A Ratio 0.89 Pulmonary Valve PV Peak Velocity 123.0 (50-150 cm/s) CT End VMAX 181.0 cm/s Tricuspid Valve TR P. Velocity 290.00 cm/s RAP Estimate 10.00 mmHg RVSP 43.60 mmHg Left Ventricle The left ventricle is normal size. The left ventricular systolic function is low normal. There is increased LV wall thickness. There is normal LV segmental wall motion. Transmitral Doppler flow pattern suggests impaired LV relaxation. LVEF is 50%. Right Ventricle The right ventricle is normal size. The right ventricular systolic function is low normal. Atria The left atrium size is normal. The right atrium size is normal. There is no Doppler evidence of interatrial shunt. Aortic Valve The aortic valve is mildly thickened. There is no aortic valvular stenosis. Trace aortic regurgitation. Mitral Valve The mitral valve leaflets are mildly thickened. No evidence of mitral valve stenosis. Trace mitral regurgitation. Tricuspid Valve The tricuspid valve leaflets are thin and pliable. Mild tricuspid regurgitation. RVSP is 20-25 mmHg. Pulmonic Valve The pulmonary valve is normal in structure. Mild pulmonic regurgitation. Great Vessels The aortic root is normal in size. The ascending aorta is not well-visualized. IVC is normal in size and collapses >50% with inspiration. Pericardium There is no pericardial effusion. Other Information Study Quality: Technically Difficult Conclusion Technically difficult study due to poor acoustic windows. Low normal LV systolic function (LVEF 50%). Mild TR, mild PI. Electronically signed by : Liz Daly MD 04/30/2024 22:42:46
--- NOTE | 2024-04-24 07:30 | NM_ITS ---
APPROVED REPORT Exam: Nuclear Stress Test Indication: SOB, Fatigue, HTN, DM, High cholesterol, Family history, CAD, CABG Patient Location: Outpatient Stress Tech: Merary LÓPEZ Tech:Jes Ramey, ARRT, RT (R)(N) Ht: 5 ft 6 in Wt: 240 lbs Bra Size: B HR: 76 bpm BP: 148/69 mmHg BSA: 2.16 m2 Rhythm: NSR TID: 1.06 BMI: 38.7 History: SOB, Fatigue, HTN, DM, High cholesterol, Family history, CAD, CABG Procedure: Patient received 0.4 mg of intravenous Lexiscan, resting heart rate 76 bpm, resting blood pressure 148/69 mmHg, with Lexiscan maximum heart rate achieved was 109 bpm which is % of the maximum predicted heart rate and blood pressure was 166/79 mmHg. With Lexiscan, patient denied any complaint of chest pain. Cardiac Stress and Resting SPECT Images: Cardiac Stress and Resting SPECT images were obtained using technetium 99m Myoview 32.2 mCi stress and 10.50 mCi at rest. The patient is unable to lie on her abdomen. Therefore, prone stress imaging could not be performed. This may affect the diagnostic interpretation of the study findings. Resting and stress imaging in supine positions demonstrate a small sized, moderate, predominantly reversible perfusion defect in the LV apex. Gated imaging demonstrates normal global LV systolic function. There is mild hypokinesis of the LV apex. LVEF is calculated at 54%. Conclusion: Small sized, moderate, predominantly reversible perfusion defect in the LV apex. Findings are suggestive of reversible ischemia. Gated imaging demonstrates normal global LV systolic function. There is mild hypokinesis of the LV apex. LVEF is calculated at 54%. Electronically signed by : Liz Daly MD 04/25/2024 13:47:12
[2024-04-24] MEDS: REGADENOSON 0.4MG/5ML SYRINGE 0.4 MG IV (09:18)
[2024-04-24] MEDS: SODIUM CHLORIDE 0.9% 10ML SYR (RAD ONLY) 10 ML IV ×2 (09:18)
[2024-04-24] MEDS: ISOTOPE MYOVIEW (PER STUDY) 1 DOSE IV (09:18)
== END 2024-04-24 23:59 | disposition home or self-care (01) ==
LOC: RAD 07:30
PROVIDERS: PCP Family Medicine; Visit Provider Internal Medicine
DX: I11.0 Hypertensive heart disease with heart failure (principal); I25.118 Atherosclerotic heart disease of native coronary artery with other forms of angina pectoris; I50.30 Unspecified diastolic (congestive) heart failure; R53.83 Other fatigue; Z95.1 Presence of aortocoronary bypass graft
CPT/HCPCS: 78452; 93017; 93018; 93306; A9502; J2785

== ENCOUNTER 2024-05-08 14:53 | Outpatient (POV) | payer MEDICARE, SELFPAY | END 2024-05-08 23:59 | disposition home or self-care (01) | LOC: SC 14:54 | PROVIDERS: PCP Family Medicine; Visit Provider Dermatology | DX: Z00.00 Encounter for general adult medical examination without abnormal findings (principal) ==

== ENCOUNTER 2024-07-30 16:41 | Outpatient (CLI) | payer MEDICARE, SELFPAY ==
--- NOTE | 2024-07-30 16:44 | XR_ITS ---
PROCEDURE INFORMATION: Exam: XR Lumbosacral Spine Exam date and time: 07/30/2024 4:50 PM Age: 74 years old Clinical indication: Low back pain TECHNIQUE: Imaging protocol: Radiologic exam of the lumbosacral spine. Views: 2 or 3 views. COMPARISON: CR XR LUMBAR SPINE MIN 4V 11/11/2020 2:31 PM FINDINGS: Bones/joints: 4 mm anterolisthesis L5-S1. Moderate facet arthropathy is identified at L5-S1. No acute fracture. Soft tissues: Unremarkable. IMPRESSION: 1. No evidence for acute fracture. 2. 4 mm anterolisthesis L5-S1. 3. Moderate facet arthropathy is identified at L5-S1.
--- NOTE | 2024-07-30 16:45 | XR_ITS ---
PROCEDURE INFORMATION: Exam: XR Right Wrist Exam date and time: 07/30/2024 4:50 PM Age: 74 years old Clinical indication: Pain; Wrist; Right TECHNIQUE: Imaging protocol: Radiologic exam of the right wrist. Views: 3 or more views. COMPARISON: No relevant prior studies available. FINDINGS: Bones/joints: Severe osteoarthritis of the 1st carpometacarpal joint and the STT joint. No acute fracture. Soft tissues: Normal. IMPRESSION: No evidence for acute fracture.
== END 2024-07-30 23:59 | disposition home or self-care (01) ==
LOC: RAD 16:42
PROVIDERS: PCP Family Medicine; Visit Provider Physician Assistant
DX: M54.16 Radiculopathy, lumbar region (principal); M25.531 Pain in right wrist
CPT/HCPCS: 72100; 73110

== ENCOUNTER 2024-08-16 13:44 | Outpatient (CLI) | payer MEDICARE, SELFPAY ==
--- NOTE | 2024-08-16 13:49 | XR_ITS ---
PROCEDURE INFORMATION: Exam: XR Left Hip Exam date and time: 08/16/2024 2:00 PM Age: 74 years old Clinical indication: Hip pain; Left hip; Additional info: Left hip pain TECHNIQUE: Imaging protocol: Radiologic exam of the left hip. Views: 2 or 3 views hip with pelvis when performed. COMPARISON: ABDPELWO CT abdomen pelvis wo con 12/11/2018 8:24 AM FINDINGS: Bones/joints: Moderate joint space narrowing and marginal osteophytosis. Soft tissues: Unremarkable. IMPRESSION: No acute fracture or dislocation. Moderate osteoarthritis of the hip.
== END 2024-08-16 23:59 | disposition home or self-care (01) ==
LOC: RAD 13:45
PROVIDERS: PCP Family Medicine; Visit Provider Physician Assistant
DX: M25.552 Pain in left hip (principal)
CPT/HCPCS: 73502

== ENCOUNTER 2024-11-16 16:59 | Outpatient (CLI) | payer MEDICARE, SELFPAY ==
--- NOTE | 2024-11-16 | MR_ITS ---
PROCEDURE INFORMATION: Exam: MR Lumbar Spine Without Contrast Exam date and time: 11/16/2024 5:19 PM Age: 74 years old Clinical indication: Low back pain; Additional info: Lbp TECHNIQUE: Imaging protocol: Magnetic resonance imaging of the lumbar spine without contrast. COMPARISON: CR XR LUMBAR SPINE 2-3V 07/30/2024 4:50 PM FINDINGS: Bones/joints: Vertebral body heights and alignment are within normal limits. High signal lesions are present within L3 and L4 compatible with hemangiomas. Lumbar spondylosis is noted with disc bulging and facet arthropathy. At T12 L1 there is a tiny central protrusion but no significant canal or foraminal narrowing. Spinal cord: Visualized cord, conus medullaris and cauda equina are unremarkable without compression. L1-L2: No significant disc bulge or herniation. No severe spinal canal stenosis. No significant neural foraminal narrowing. L2-L3: No significant disc bulge or herniation. No severe spinal canal stenosis. No significant neural foraminal narrowing. L3-L4: At L3-L4 there is disc bulging with facet arthropathy causing mild canal narrowing and neural foraminal stenosis. L4-L5: At L4-L5 there is disc bulging with facet arthropathy and small central annular high signal intensity zone. There is minor canal narrowing, mild to moderate neural foraminal stenosis. L5-S1: At L5-S1 there is disc bulging but no impingement upon the tapering thecal sac and minor neural foraminal narrowing. Soft tissues: Unremarkable. IMPRESSION: Minor lumbar spondylosis as described.
== END 2024-11-16 23:59 | disposition home or self-care (01) ==
LOC: RAD 17:00
PROVIDERS: Visit Provider Specialist/Technologist Athletic Trainer
DX: M43.16 Spondylolisthesis, lumbar region (principal)
CPT/HCPCS: 72148

== ENCOUNTER 2024-11-26 10:36 | Outpatient (CLI) | payer MEDICARE, SELFPAY ==
[2024-11-26 16:26] LABS: Microscopic,Cath URINE MICROSCOPIC (MICROSCOPIC)
[2024-11-26 17:05] LABS: Appearance,Urine/Cath CLEAR (Clear); Bilirubin,Cath Negative (Negative); Blood, Urine/Cath TRACE-L (Negative); Color,Urine/Cath YELLOW (Yellow); Glucose,Urine/Cath (UA) Negative (Negative); Ketones,Urine/Cath Negative (Negative); Leukocyte Esterase,Cath Negative (Negative); Nitrate,Cath Negative (Negative); Protein,Urine/Cath Negative (Negative); Specific Gravity, Urine/Cath 1.015 (1.005-1.030); Urobilinogen,Cath 0.2 EU/dl (0.2)
[2024-11-26 19:00] LABS: Bacteria,Urine/Cath TRACE /lpf; RBC,Urine/Cath Occasional # /hpf (0-3)
== END 2024-11-26 23:59 | disposition home or self-care (01) ==
LOC: LAB.DROPOF 11-28 10:37
PROVIDERS: PCP Family Medicine; Visit Provider Urology
DX: N39.41 Urge incontinence (principal); N39.3 Stress incontinence (female) (male); N39.0 Urinary tract infection, site not specified; B96.4 Proteus (mirabilis) (morganii) as the cause of diseases classified elsewhere
CPT/HCPCS: 81001; 87086; 87088; 87186

== ENCOUNTER 2024-12-25 14:47 | Outpatient (CLI) | payer MEDICARE, SELFPAY ==
--- NOTE | 2024-12-25 14:45 | US_ITS ---
FINAL REPORT TECHNIQUE: Ultrasound images of the kidneys and bladder were obtained. CLINICAL HISTORY: hematuria FINDINGS: The right kidney measures 9.9 cm in length. It is normal in echogenicity. There is no hydronephrosis. The left kidney measures 10.4 cm in length. It is normal in echogenicity. There is no hydronephrosis. The spleen measures 12.2 cm which is in the upper limits of normal. IMPRESSION: No acute process. Reviewed, Interpreted and Dictated by Barber Johnson MD Transcribed by Tona Nunes Authenticated and [facility]
--- OUTSIDE RECORDS SUMMARY | 2024-12-25 14:49 | XMS_ITS ---
Care Plan - [facility], [facility] Created on: December 25, 2024 DesirSindy : 1950 Sex: Female Author Organization [facility] Address [address] [place] [phone] Phone Care Team Providers Care Fabric Designer Name Role Phone Nick Iqbal MD Unavailable [phone]
--- OUTSIDE RECORDS SUMMARY | 2024-12-25 14:49 | XMS_ITS | Clinical Summary ---
Author Organization [facility] , [facility] Address [address] [place] [address] Phone Care Team Providers Care Electric Meter Technician Name Role Phone Nick Iqbal MD Unavailable [phone] Reason for Visit and Chief Complaint The Chief Complaint is: Lower back/Lt hip pain Problems Includes: Problems addressed during this encounter and other active Problems Current Visit Onset Date Resolved Date Provider John carbajal Status Lower Back Pain 10/03/2024 Alex Garcia PA-C A ctive Last Documented On 2:37PM ; [facility] Plan of Treatment - Patient screened for future fall risk: documentation of any fall with injury in past year - Last Documented On 12/07/2024 11:57AM ; [facility] Fall Risk Assessment: This patient has been identified as a fall risk. Balance/gait along with postural blood pressure, vision and home fall hazards have been assessed. Medications have been reviewed, and recommendations made with regard to contributing factors for future falls. Plan of care: Consideration of vitamin D supplementation along with balance and strength training with consideration for formal physical therapy has been discussed with the patient. - Last Documented On 12/07/2024 11:57AM ; [facility] Patient was seen by myself Alex Garcia PA-C. Patient will follow up with me as needed I believe this is more of the hip problem for her I think she should placed. Gave her the names of the surgeons in the practice that do hip replacement surgery she is going to think about that I told her to if she wants to do that she can call oneof them to get on their scheduled to schedule the surgery in the meantime she was asking about injections I think she needs to hold off injections I do not think they would help her hip at all. - Last Documented On 12/07/2024 11:57AM ; [facility] Pending Tests Order Diagnosis Results Due Ordering Brent valdovinos Radiology - MRI MRI Lumbar Spine Low back pain, unspecified 10/17/24 Alex Garcia PA-C Last Documented On 5 12:40PM ; [facility], [facility] Instructions to patient Lose weight Last Documented On 5 11:19AM ; [facility], [facility] Assessments Includes: Assessments from this encounter Findings - Overweight - Last Documented On 12/07/2024 11:57AM ; [facility], [facility] Left hip OA - Last Documented On 12/07/2024 11:57AM ; [facility] Instructions Includes: Instructions from this encounter Instructions to patient Lose weight Last Documented On 5 11:19AM ; [facility] Medical Equipment - Implanted Devices Includes: Current Devices No Medical Equipment Recorded Medications Includes: Medications discussed during this encounter and other current Medications Current Medications (continue as prescribed) levoFLOXacin 500 MG Oral Tablet 11/29/2024 Provider: Diagnosis: Last Documented On 11:17AM By Vasiliy Meza ; [facility], [facility] oxyBUTYnin Chloride ER 10 MG Oral Tablet Extended Release 24 Hour 11/26/2024 Provider: Diagnosis: Last Documented On 5 11:17AM By Vasiliy Meza ; [facility], [facility] Estradiol 0.1 MG/GM Vaginal Cream 11/26/2024 Provide r: Diagnosis: Last Documented On 5 11:17AM By Vasiliy Meza ; [facility], [facility] Nystatin [id number] UNIT/GM External Cream 11/22/2024 Pr ovider: Diagnosis: Last Documented On 5 11:17AM By Vasiliy Rodrigues [facility] methylPREDNISolone 4 MG Oral Tablet Therapy Pack 11/14 Provider: Diagnosis: Last Documented On 5 11:18AM By Vasiliy Meza ; [facility], [facility] Cefdinir 300 MG Oral Capsule 10/05/2024 Provider: Diagnosis: Last Documented On 5 11:18AM By Vasiliy Meza ; [facility] Levocetirizine Dihydrochlori de 5 MG Oral Tablet 10/02/2024 Provider: Jadyn CHRISTINA RN Diagnosis: Last Documented On 5 2:37PM By Vasiliy Meza ; [facility] metFORMIN HCl 500 MG Oral Tablet 09/18/2024 Provider : CARMEN BRAND MD Diagnosis: Last Documented On 5 2:37PM By Vasiliy Meza ; [facility] Irbesartan 150 MG Oral Tablet 09/18/2024 Provider: CARMEN BRAND MD Diagnosis: Last Documented On 5 2:37PM By Vasiliy Meza ; [facility] Celecoxib 200 MG Oral Capsule 09/18/2024 Provider: CARMEN BRAND MD Diagnosis: Last Documented On 5 2:37PM By Vasiliy Meza ; [facility] Sertraline HCl 50 MG Oral Tablet 09/05/2024 Provider : CARMEN BRAND MD Diagnosis: Last Documented On 5 11:18AM By Vasiliy Meza ; [facility] Sertraline HCl 50 MG Oral Tablet 09/05/2024 Provider : CARMEN BRAND MD Diagnosis: Last Documented On 5 2:37PM By Vasiliy Meza ; [facility] TRUEplus Lancets 33G Miscellaneous 08/30/2024 Provid er: CARMEN BRAND MD Diagnosis: Last Documented On 5 2:39PM By Vasiliy Meza ; [facility] Omeprazole 40 MG Oral Capsule Delayed Release 08/30/19 Provider: Diagnosis: Last Documented On 5 2:37PM By Vasiliy Meza ; [facility] Atorvastatin Calcium 20 MG Oral Tablet 08/30/2024 Pr ovider: CARMEN BRAND MD Diagnosis: Last Documented On 5 2:37PM By Vasiliy Meza ; [facility] traMADol HCl 50 MG Oral Tablet 08/28/2024 Provider: CARMEN BRAND MD Diagnosis: Last Documented On 5 2:39PM By Vasiliy Meza ; [facility] Nabumetone 500 MG Oral Tablet 08/27/2024 Provider: Diagnosis: Last Documented On 5 2:39PM By Vasiliy Meza ; [facility] Glimepiride 2 MG Oral Tablet 08/07/2024 Provider: CARMEN BRAND MD Diagnosis: Last Documented On 2:39PM By Vasiliy Meza ; [facility] Metoprolol Succinate ER 25 M G Oral Tablet Extended Release 24 Hour 07/31/2024 Provider: Diagnosis: Last Documented On 5 2:39PM By Vasiliy Meza ; [facility] Gemtesa 75 MG Oral Tablet 07/24/2024 Provider: CONSTANTINO BRAND MD Diagnosis: Last Documented On 2:39PM By Vasiliy Meza ; [facility] Diphenoxylate-Atropine 2.5-0 .025 MG Oral Tablet 07/17/2024 Provider: CARMEN BRAND MD Diagnosis: Last Documented On 2:39PM By Vasiliy Meza ; [facility] Medications Administered Includes: Administered Medications from this encounter No Administered Medications Recorded Vital Signs Includes: Vital Signs from this encounter Vital Name 12/07/2024 11:27A Height (in) 65 Weight (lb) 247 Body Mass Index 41.1 Body Surface Area 2.2 Pain Level 8 Last Documented: On 12/07/2024 11:27A M ; [facility] Results Includes: Results discussed during this encounter No Results Recorded For Specified Dates History of Present Illness Includes: History of Present Illness from this encounter SUSIE Desir is a 74 year old female. - Allergy list reviewed - Problem list reviewed - Medication list reviewed - Yes, previous treatment. - - Review of medications documented Medications used for this condition: tylenol, tramadol Follow up on her lumbar spine MRI her biggest complaint is pain with the left hip and left groin area difficulty walking difficulties getting up and down out of a chair difficulty getting clothing on she was seen by a previous physician who referred her here to look at her back side of things. She denies any bowel or bladder issues with this. She does have a history of heart surgery in the past in 2005 she had open heart surgery she is not on any blood thinners but she is diabetic. She does take tramadol for pain Social History Description Last Updated Caffeine use 10/03/2024 Last Documented On 11:19AM ; [facility] No recent change in diet 10/03/2024 Last Documented On 04/11/202 5 11:19AM ; [facility] Not a current smoker. 10/03/2024 Last Documented On 5 11:19AM ; [facility] Not exercising regularly 10/03/2024 Last Documented On 5 11:19AM ; [facility] Not using alcohol 10/03/2024 Last Documented On 5 11:19AM ; [facility] Not using drugs 10/03/2024 Last Documented On 5 11:19AM ; [facility] Smoking Status Unknown Procedures and Surgical History Includes: Procedures from this encounter Procedures Code Diagnosis Performing Provider Service L ocation Service Date X-ray [facility] [id number] Last Documented On 5 11:19AM ; [facility], [facility] Medical History Includes: Medical History addressed during this encounter Description Last Updated History of arthritis 10/03/2024 Last Documented On 5 11:19AM ; [facility] History of diabetes mellitus 10/03/2024 Last Documented On 5 11:19AM ; [facility] History of heart disease 10/03/2024 Last Documented On 5 11:19AM ; [facility] Family History Includes: Family History addressed during this encounter Description Last Updated Family history of cancer 10/03/2024 Last Documented On 5 11:19AM ; [facility] Family history of heart disease 10/03/19 Last Documented On 5 11:19AM ; [facility] Family history of osteoporosis 5 Last Documented On 5 11:19AM ; [facility] Review of Systems Includes: Review of Systems from this encounter Systemic: Feeling tired. No recent weight loss and no recent weight gain. Head: Headache and sinus pain. Eyes: No vision problems and no Cataracts. Glasses/Contacts. No Glaucoma. Otolaryngeal: No hearing loss. Tinnitus. Cardiovascular: No chest pain or discomfort, no palpitations, no Hypertension, and no High Cholesterol. Pulmonary: No daytime asthma symptoms and no chronic cough. No wheezing. Gastrointestinal: No heartburn. Abdominal pain. No Indigestion, no Peptic Ulcer, no GI Stomach Bleed, no Ulcers, and no Acid Reflux. Endocrine: Hot flashes. No muscle weakness. Diabetes. No Hypothyroid and no Hyperthyroid. Hematologic: No easy bleeding. A tendency for easy bruising. No Anemia. Musculoskeletal: Arthritis and lower back pain. No soft tissue swelling. Pain localized to one or more joints. Neurological: No dizziness, no convulsions, and no numbness. Psychological: No anxiety, no emotional lability, no depression, and no insomnia. Not crying for no reason. Skin: No dry skin. No Ulcers, no Scars, and no rash. Allergic and Immunologic: Complaint of seasonal allergic reaction. Mental Status Includes: Mental Status from this encounter Description No anxiety Functional Status Includes: Functional Status from this encounter No Functional Status Recorded Physical Exam Includes: Physical Exam from this encounter Allergies Includes: Active Allergies Substance Type Reaction Onset Date Resolved Date Statu s Percocet Allergy 10/03/2024 Active Last Documented On 11:18AM ; [facility] Encounters Encounter Provider Location Date Check-In Time Check-Out Time Diagnosis Follow Up Alex Garcia PA-C [facility] 5 11:20AM 11:58AM Overweight Insurance Includes: Active Insurance Policies Plan Name Member ID Group # Subscriber Relationship Effect donal Dates - [employer] [id number] Sindy Desir Self Clinical Notes Includes: Clinical Notes from this encounter * Progress note Date Encounter Last Documented by 12/07/2024 Follow Up Last documented on 12/07/2024; 11:57 AM, Alex Baker; [facility] Active Problems & Conditions - Lower Back Pain Chief Complaint The Chief Complaint is: Lower back/Lt hip pain. Referred Here Referred by. History of Present Illness Sindy Desir is a 74 year old female. - Allergy list reviewed - Problem list reviewed - Medication list reviewed - Yes, previous treatment. - - Review of medications documented Medications used for this condition: tylenol, tramadol Follow up on her lumbar spine MRI her biggest complaint is pain with the left hip and left groin area difficulty walking difficulties getting up and down out of a chair difficulty getting clothing on she was seen by a previous physician who referred her here to look at her back side of things. She denies any bowel or bladder issues with this. She does have a history of heart surgery in the past in 2005 she had open heart surgery she is not on any blood thinners but she is diabetic. She does take tramadol for pain Current Medication - Atorvastatin Calcium 20 MG Oral Tablet 90 days, 0 refills - Cefdinir 300 MG Oral Capsule 7 days, 0 refills - Celecoxib 200 MG Oral Capsule 90 days, 0 refills - Diphenoxylate-Atropine 2.5-0.025 MG Oral Tablet 5 days, 0 refills - Estradiol 0.1 MG/GM Vaginal Cream 14 days, 0 refills - Gemtesa 75 MG Oral Tablet 30 days, 0 refills - Glimepiride 2 MG Oral Tablet 90 days, 0 refills - Irbesartan 150 MG Oral Tablet 90 days, 0 refills - Levocetirizine Dihydrochloride 5 MG Oral Tablet 30 days, 0 refills - levoFLOXacin 500 MG Oral Tablet 7 days, 0 refills - metFORMIN HCl 500 MG Oral Tablet 90 days, 0 refills - methylPREDNISolone 4 MG Oral Tablet Therapy Pack 6 days, 0 refills - Metoprolol Succinate ER 25 MG Oral Tablet Extended Release 24 Hour 80 days, 0 refills - Nabumetone 500 MG Oral Tablet 30 days, 0 refills - Nystatin [id number] UNIT/GM External Cream 10 days, 0 refills - Omeprazole 40 MG Oral Capsule Delayed Release 90 days, 0 refills - oxyBUTYnin Chloride ER 10 MG Oral Tablet Extended Release 24 Hour 90 days, 0 refills - Sertraline HCl 50 MG Oral Tablet 90 days, 0 refills - Sertraline HCl 50 MG Oral Tablet 90 days, 0 refills - traMADol HCl 50 MG Oral Tablet 10 days, 0 refills - TRUEplus Lancets 33G Miscellaneous 90 days, 0 refills Past Medical/Surgical History Diagnoses: Heart disease. Diabetes mellitus. Arthritis Social History Not a current smoker. Current diet: No recent change in diet. Caffeine use: Caffeine use. Alcohol: Not using alcohol. Drug Use: Not using drugs. Habits: Not exercising regularly. Allergies - Percocet Family History Cancer Heart disease Osteoporosis Review Of Systems Systemic: Feeling tired. No recent weight loss and no recent weight gain. Head: Headache and sinus pain. Eyes: No vision problems and no Cataracts. Glasses/Contacts. No Glaucoma. Otolaryngeal: No hearing loss. Tinnitus. Cardiovascular: No chest pain or discomfort, no palpitations, no Hypertension, and no High Cholesterol. Pulmonary: No daytime asthma symptoms and no chronic cough. No wheezing. Gastrointestinal: No heartburn. Abdominal pain. No Indigestion, no Peptic Ulcer, no GI Stomach Bleed, no Ulcers, and no Acid Reflux. Endocrine: Hot flashes. No muscle weakness. Diabetes. No Hypothyroid and no Hyperthyroid. Hematologic: No easy bleeding. A tendency for easy bruising. No Anemia. Musculoskeletal: Arthritis and lower back pain. No soft tissue swelling. Pain localized to one or more joints. Neurological: No dizziness, no convulsions, and no numbness. Psychological: No anxiety, no emotional lability, no depression, and no insomnia. Not crying for no reason. Skin: No dry skin. No Ulcers, no Scars, and no rash. Allergic and Immunologic: Complaint of seasonal allergic reaction. Physical Findings - Vitals taken 12/07/2024 11:27 am Height 65 in Weight 247 lbs Body Mass Index 41.1 kg/m2 Body Surface Area 2.2 m2 Pain Level 8 Patient is overweight she has pain with left hip range motion little bit limited range motion does use a cane to walk with Strength 4+ out of 5 left lower extremity Tests MRI lumbar spine shows some mild disc bulges at the L3-L4 L4-L5 there is no central stenosis she has a little bit of foraminal stenosis at L3-L4 Previous hip x-rays show significant degenerative changes with the left hip Assessment - Overweight Left hip OA Previous Tests Imaging: X-Ray: X-ray [facility]. Available previous imaging studies were reviewed Available previous history reviewed Counseling/Education - Tobacco non-user - Use of tobacco assessment performed - Lose weight Plan - Patient screened for future fall risk: documentation of any fall with injury in past year Fall Risk Assessment: This patient has been identified as a fall risk. Balance/gait along with postural blood pressure, vision and home fall hazards have been assessed. Medications have been reviewed, and recommendations made with regard to contributing factors for future falls. Plan of care: Consideration of vitamin D supplementation along with balance and strength training with consideration for formal physical therapy has been discussed with the patient. Patient was seen by myself Alex Garcia PA-C. Patient will follow up with me as needed I believe this is more of the hip problem for her I think she should placed. Gave her the names of the surgeons in the practice that do hip replacement surgery she is going to think about that I told her to if she wants to do that she can call oneof them to get on their scheduled to schedule the surgery in the meantime she was asking about injections I think she needs to hold off injections I do not think they would help her hip at all. Notes This dictation was done with voice recognition software and may contain errors and omissions.
--- OUTSIDE RECORDS SUMMARY | 2024-12-25 14:49 | XMS_ITS | Clinical Summary ---
Author Organization [facility] , [facility] Address [address] [place] [address] Phone Care Team Providers Care Notcher Name Role Phone Nick Iqbal MD Unavailable [phone] Reason for Visit and Chief Complaint The Chief Complaint is: Lower back/Lt hip pain Problems Includes: Problems addressed during this encounter and other active Problems Current Visit Onset Date Resolved Date Provider John carbajal Status Lower Back Pain 10/03/2024 Alex Garcia PA-C A ctive Last Documented On 2:37PM ; [facility] Plan of Treatment - Patient screened for future fall risk: documentation of any fall with injury in past year - Last Documented On 10/09/2024 12:40PM ; [facility] Fall Risk Assessment: This patient has [...] with the patient. - Last Documented On 10/09/2024 12:40PM ; [facility] Patient was seen by myself Alex Garcia PA-C. Patient will follow up me after a lumbar spine MRI told her we can get the lumbar spine MRI to rule out any stenosis at the L2-L3 L3-L4 levels to be thorough but I honestly believe this is more her left hip it may need to consider getting a left hip replacement. I had a conversation with both her and her daughter over the phone about this also. If she wants to replace her left hip she is going to think about that and she will have a different physician to do that. - Last Documented On 10/09/2024 12:40PM ; [facility] Pending Tests Order Diagnosis Results Due Ordering Brent valdovinos Radiology - MRI MRI Lumbar Spine Low back pain, unspecified 10/17/24 Alex Garcia PA-C Last Documented On 5 12:40PM ; [facility], [facility] Instructions to patient Lose weight Last Documented On 5 4:47PM ; [facility], [facility] Assessments Includes: Assessments from this encounter Findings - Overweight - Last Documented On 10/09/2024 12:40PM ; [facility], [facility] Left hip OA - Last Documented On 10/09/2024 12:40PM ; [facility], [facility] Low back pain - Last Documented On 10/09/2024 12:40PM ; [facility], [facility] Instructions Includes: Instructions from this encounter Instructions to patient Lose weight Last Documented On 5 4:47PM ; [facility] Medical Equipment - Implanted Devices Includes: Current Devices No Medical Equipment Recorded Medications Includes: Medications discussed during this encounter and other current Medications Current Medications (continue as prescribed) levoFLOXacin 500 MG Oral Tablet 11/29/2024 Provider: Diagnosis: Last Documented On 5 11:17AM By Vasiliy Meza ; [facility], [facility] oxyBUTYnin Chloride ER 10 MG Oral Tablet Extended Release 24 Hour 11/26/2024 Provider: Diagnosis: Last Documented On 5 11:17AM By Vasiliy Meza ; [facility] Estradiol 0.1 MG/GM Vaginal Cream 11/26/2024 Provide r: Diagnosis: Last Documented On 11:17AM By Vasiliy Meza ; [facility], [facility] Nystatin 612230 UNIT/GM External Cream 11/22/2024 Pr ovider: Diagnosis: Last Documented On 5 11:17AM By Vasiliy Meza ; [facility] methylPREDNISolone 4 MG Oral Tablet Therapy Pack 11/14 Provider: Diagnosis: Last Documented On 5 11:18AM By Vasiliy Meza ; [facility], [facility] Cefdinir 300 MG Oral Capsule 10/05/2024 Provider: Diagnosis: Last Documented On 5 11:18AM By Vasiliy Meza ; [facility], [facility] Levocetirizine Dihydrochlori de 5 MG Oral Tablet 10/02/2024 Provider: Jadyn CHRISTINA RN Diagnosis: Last Documented On 5 2:37PM By Vasiliy Meza ; [facility] metFORMIN HCl 500 MG Oral Tablet 09/18/2024 Provider : CARMEN BRAND MD Diagnosis: Last Documented On 5 2:37PM By aVsiliy Meza ; [facility] Irbesartan 150 MG Oral Tablet 09/18/2024 Provider: CARMEN BRAND MD Diagnosis: Last Documented On 5 2:37PM By Vasiliy Meza ; [facility] Celecoxib 200 MG Oral Capsule 09/18/2024 Provider: CARMEN BRAND MD Diagnosis: Last Documented On 5 2:37PM By Vasiliy Meza ; [facility] Sertraline HCl 50 MG Oral Tablet 09/05/2024 Provider : CARMEN BRAND MD Diagnosis: Last Documented On 5 11:18AM By Vasiliy Meza ; [facility] Sertraline HCl 50 MG Oral Tablet 09/05/2024 Provider : CARMEN BRAND MD Diagnosis: Last Documented On 5 2:37PM By Vasiliy Meza ; [facility] TRUEplus Lancets 33G Miscellaneous 08/30/2024 Provid er: CARMEN BRAND MD Diagnosis: Last Documented On 5 2:39PM By Vasiliy Meza ; [facility] Omeprazole 40 MG Oral Capsule Delayed Release 08/30/19 25 Provider: Diagnosis: Last Documented On 5 2:37PM By Vasiliy Meza ; [facility] Atorvastatin Calcium 20 MG Oral Tablet 08/30/2024 Pr ovider: CARMEN BRAND MD Diagnosis: Last Documented On 5 2:37PM By Vasiliy Meza ; [facility] traMADol HCl 50 MG Oral Tablet 08/28/2024 Provider: CARMEN BRAND MD Diagnosis: Last Documented On 5 2:39PM By Vasiliy Meza ; [facility] Nabumetone 500 MG Oral Tablet 08/27/2024 Provider: Diagnosis: Last Documented On 5 2:39PM By Vasiliy Meza ; [facility] Glimepiride 2 MG Oral Tablet 08/07/2024 Provider: CARMEN BRAND MD Diagnosis: Last Documented On 5 2:39PM By Vasiliy Meza ; [facility], [facility] Metoprolol Succinate ER 25 M G Oral Tablet Extended Release 24 Hour 07/31/2024 Provider: Diagnosis: Last Documented On 5 2:39PM By Vasiliy Meza ; [facility], [facility] Gemtesa 75 MG Oral Tablet 07/24/2024 Provider: CONSTANTINO BRAND MD Diagnosis: Last Documented On 5 2:39PM By Vasiliy Meza ; [facility], [facility] Diphenoxylate-Atropine 2.5-0 .025 MG Oral Tablet 07/17/2024 Provider: CARMEN BRAND MD Diagnosis: Last Documented On 5 2:39PM By Vasiliy Meza ; [facility] Medications Administered Includes: Administered Medications from this encounter No Administered Medications Recorded Vital Signs Includes: Vital Signs from this encounter Vital Name 10/03/2024 02:55P Height (in) 65 Weight (lb) 262 Body Mass Index 43.6 Body Surface Area 2.2 Pain Level 9 Last Documented: On 10/03/2024 2:55PM ; [facility], [facility] Results Includes: Results discussed during this encounter No Results Recorded For Specified Dates History of Present Illness Includes: History of Present Illness from this encounter SUSIE Desir is a 74 year old female. - Symptoms pain better: heat. - Allergy list reviewed - Problem list reviewed - Medication list reviewed - Previous history of new onset pain november 2022 fell - Stabbing pain - Pain is constant (100% of the time) - Pain is throbbing - Patient pain level from 1-10: 9 - Yes, previous treatment. - - Review of medications documented Medications used for this condition: tylenol, tramadol Patient is here today complaints of back pain and left hip pain she saw previous provider who thought maybe this was coming from her back. She has had some hip injections sounds like some bursa injections which really did not help. Her pain seems to be in the left posterior buttock and radiates across into the thigh some intermittent left groin pain with this. She has a hard time getting up and down out of a chair and walking pain level 9/10 she denies any bowel or bladder issues with this no previous back surgery. Social History Description Last Updated Caffeine use 10/03/2024 Last Documented On 5 12:40PM ; [facility], [facility] No recent change in diet 10/03/2024 Last Documented On 5 12:40PM ; [facility], [facility] Not a current smoker. 10/03/2024 Last Documented On 5 12:40PM ; [facility], [facility] Not exercising regularly 10/03/2024 Last Documented On 5 12:40PM ; [facility], [facility] Not using alcohol 10/03/2024 Last Documented On 5 12:40PM ; [facility], [facility] Not using drugs 10/03/2024 Last Documented On 12:40PM ; [facility], [facility] Smoking Status Unknown Procedures and Surgical History Includes: Procedures from this encounter Procedures Code Diagnosis Performing Provider Service Location Service Date X-RAY EXAM OF LOWER SPINE 4-5 VIEWS [address] Spondylolisthes is, lumbar region Alex Garcia PA-C [facility] 10/03/2024 Last Documented On 5 3:28PM ; [facility], [facility] X-ray [facility] [id number] Last Documented On 5 4:45PM ; [facility], [facility] Medical History Includes: Medical History addressed during this encounter Description Last Updated History of arthritis 10/03/2024 Last Documented On 5 12:40PM ; [facility], [facility] History of diabetes mellitus 10/03/2024 Last Documented On 5 12:40PM ; [facility], [facility] History of heart disease 10/03/2024 Last Documented On 5 12:40PM ; [facility], [facility] Family History Includes: Family History addressed during this encounter Description Last Updated Family history of cancer 10/03/2024 Last Documented On 5 12:40PM ; [facility], [facility] Family history of heart disease 10/03/19 Last Documented On 5 12:40PM ; [facility], [facility] Family history of osteoporosis 5 Last Documented On 5 12:40PM ; [facility] Review of Systems Includes: Review [...] Percocet Allergy 10/03/2024 Active Last Documented On 5 11:18AM ; [facility] Encounters Encounter Provider Location Date Check-In Time Check-Out Time Diagnosis Physician Specified Alex Garcia PA-C [facility] 10/03/19 25 2:44PM 3:39PM Overweight Insurance Includes: Active Insurance Policies Plan Name Member ID Group # Subscriber Relationship Effect donal Dates 1 - [employer] [id number] Sindy Desir Self Clinical Notes Includes: Clinical Notes from this encounter * Progress note Date Encounter Last Documented by 10/03/2024 Physician Specified Last documen susan on 10/09/2024; 12:40 PM, Alex Garcia PA-C; [facility] Active Problems & Conditions - Lower Back Pain Chief Complaint The Chief Complaint is: Lower back/Lt hip pain. Referred Here Referred by. History of Present Illness Sindy Desir is a 74 year old female. - Symptoms pain better: heat. - Allergy list reviewed - Problem list reviewed - Medication list reviewed - Previous history of new onset pain november 2022 fell - Stabbing pain - Pain is constant (100% of the time) - Pain is throbbing - Patient pain level from 1-10: 9 - Yes, previous treatment. - - Review of medications documented Medications used for this condition: tylenol, tramadol Patient is here today complaints of back pain and left hip pain she saw previous provider who thought maybe this was coming from her back. She has had some hip injections sounds like some bursa injections which really did not help. Her pain seems to be in the left posterior buttock and radiates across into the thigh some intermittent left groin pain with this. She has a hard time getting up and down out of a chair and walking pain level 9/10 she denies any bowel or bladder issues with this no previous back surgery. Current Medication - Atorvastatin Calcium 20 MG Oral Tablet 90 days, 0 refills - Celecoxib 200 MG Oral Capsule 90 days, 0 refills - Diphenoxylate-Atropine 2.5-0.025 MG Oral Tablet 5 days, 0 refills - Gemtesa 75 MG Oral Tablet 30 days, 0 refills - Glimepiride 2 MG Oral Tablet 90 days, 0 refills - Irbesartan 150 MG Oral Tablet 90 days, 0 refills - Levocetirizine Dihydrochloride 5 MG Oral Tablet 30 days, 0 refills - metFORMIN HCl 500 MG Oral Tablet 90 days, 0 refills - Metoprolol Succinate ER 25 MG Oral Tablet Extended Release 24 Hour 80 days, 0 refills - Nabumetone 500 MG Oral Tablet 30 days, 0 refills - Omeprazole 40 MG Oral Capsule Delayed Release 90 days, 0 refills - Sertraline HCl [...] allergic reaction. Physical Findings - Vitals taken 10/03/2024 02:55 pm Height 65 in Weight 262 lbs Body Mass Index 43.6 kg/m2 Body Surface Area 2.2 m2 Pain Level 9 Patient has a hard time getting up and down out of the chair She does walk with a Trendelenburg gait Has pain posterior buttock with left hip range motion Left lower extremity strength 4+ out of 5 for [facility] gastrocs quadriceps tibialis anterior strength bilaterally Blunted Achilles and patellar reflexes bilaterally Negative straight leg raise bilaterally Tests Four view lumbar spine show no acute fracture she potentially may have an L5-S1 spondylolisthesis and some degenerative changes L1-L2 L2-L3 L3-L4 10/03/2024 Outside facility x-rays of the left hip show significant degenerative changes with the left hip Assessment - Overweight Left hip OA Low back pain Previous Tests Imaging: X-Ray: X-ray [facility]. Available previous imaging studies were reviewed Available previous history reviewed Counseling/Education - Tobacco non-user - Use of tobacco assessment performed - Lose weight Plan StartCited - Low back pain, unspecified Radiology/MRI: MRI Lumbar Spine EndCited - Patient screened for future fall risk: [...] Alex Garcia PA-C. Patient will follow up me after a lumbar spine MRI told her we can get the lumbar spine MRI to rule out any stenosis at the L2-L3 L3-L4 levels to be thorough but I honestly believe this is more her left hip it may need to consider getting a left hip replacement. I had a conversation with both her and her daughter over the phone about this also. If she wants to replace her left hip she is going to think about that and she will have a different physician to do that. Notes This dictation was done with voice recognition software and may contain errors and omissions.
--- OUTSIDE RECORDS SUMMARY | 2024-12-25 14:50 | XMS_ITS ---
Author Organization [facility] , [facility] Address [address] [place] [address] Phone Care Team Providers Care Supervisor Files Name Role Phone Rasheed AVILES, Nick Person Unavailable [phone] Problems Includes: Active, inactive, and resolved Problems All Visits Onset Date Resolved Date Provider Condition S tatus Lower Back Pain 10/03/2024 Alex Garcia PA-C A ctive Last Documented On 5 2:37PM ; [facility], [facility] Plan of Treatment Findings Encounter Date Patient screened for future fall risk: documentation of any fall with injury in past year Follow Up with Alex Garcia PA-C 12/07/2024 Last Documented On 5 11:57AM ; [facility], [facility] Patient screened for future fall risk: documentation of any fall with injury in past year Physician Specified with Alex Garcia PA-C 10/03/2024 Last Documented On 5 12:40PM ; [facility] Pending Tests Order Diagnosis Results Due Ordering P rovider Radiology - MRI MRI Lumbar Spine Low back pain, unspecified 10/17/24 Alex Garcia PA-C Last Documented On 5 12:40PM ; [facility] Instructions to patient Lose weight Last Documented On 5 11:19AM ; [facility] Lose weight Last Documented On 5 4:47PM ; [facility] Assessments Includes: Assessments for all patient encounters Findings Encounter Date Overweight Follow Up with Alex Baker 12/07/2024 Last Documented On 5 11:57AM ; [facility], [facility] Overweight Physician Specified with Alex Garcia PA-C 10/03/2024 Last Documented On 5 12:40PM ; [facility], [facility] Instructions Includes: Instructions for all patient encounters Instructions to patient Lose weight Last Documented On 5 11:19AM ; [facility], [facility] Lose weight Last Documented On 5 4:47PM ; [facility], [facility] Medical Equipment - Implanted Devices Includes: Current and historical Devices No Medical Equipment Recorded Medications Includes: Current and historical Medications Current Medications (continue as prescribed) levoFLOXacin 500 MG Oral Tablet 11/29/2024 Provider: Diagnosis: Last Documented On 5 11:17AM By Vasiliy Meza ; [facility], [facility] oxyBUTYnin Chloride ER 10 MG Oral Tablet Extended Release 24 Hour 11/26/2024 Provider: Diagnosis: Last Documented On 5 11:17AM By Vasiliy Meza ; [facility], [facility] Estradiol 0.1 MG/GM Vaginal Cream 11/26/2024 Provide r: Diagnosis: Last Documented On 5 11:17AM By Vasiliy Meza ; [facility], [facility] Nystatin 100615 UNIT/GM External Cream 11/22/2024 Pr ovider: Diagnosis: Last Documented On 5 11:17AM By Vasiliy Meza ; [facility], [facility] methylPREDNISolone 4 MG Oral Tablet Therapy Pack 11/14 Provider: Diagnosis: Last Documented On 5 11:18AM By Vasiliy Meza ; [facility], [facility] Cefdinir 300 MG Oral Capsule 10/05/2024 Provider: Diagnosis: Last Documented On 5 11:18AM By Vasiliy Meza ; [facility], [facility] Levocetirizine Dihydrochlori de 5 MG Oral Tablet 10/02/2024 Provider: Jadyn CHRISTINA RN Diagnosis: Last Documented On 5 2:37PM By Vasiliy Meza ; [facility], [facility] metFORMIN HCl 500 MG Oral Tablet 09/18/2024 Provider : CARMEN BRAND MD Diagnosis: Last Documented On 5 2:37PM By Vasiliy Meza ; [facility], [facility] Irbesartan 150 MG Oral Tablet 09/18/2024 Provider: CARMEN BRAND MD Diagnosis: Last Documented On 5 2:37PM By Vasiliy Meza ; [facility], [facility] Celecoxib 200 MG Oral Capsule 09/18/2024 Provider: CARMEN BRAND MD Diagnosis: Last Documented On 5 2:37PM By Vasiliy Meza ; [facility] Sertraline HCl 50 MG Oral Tablet 09/05/2024 Provider : CARMEN BRAND MD Diagnosis: Last Documented On 5 11:18AM By Vasiliy Meza ; [facility] Sertraline HCl 50 MG Oral Tablet 09/05/2024 Provider : CARMEN BRAND MD Diagnosis: Last Documented On 5 2:37PM By Vasiliy Meza ; [facility] TRUEplus Lancets 33G Miscellaneous 08/30/2024 Provid er: CARMEN BRAND MD Diagnosis: Last Documented On 5 2:39PM By Vasiliy Meza ; [facility] Omeprazole 40 MG Oral Capsule Delayed Release 08/30/19 Provider: Diagnosis: Last Documented On 5 2:37PM By Vasiliy Meza ; [facility] Atorvastatin Calcium 20 MG Oral Tablet 08/30/2024 Pr ovider: CARMEN BRAND MD Diagnosis: Last Documented On 5 2:37PM By Vasiliy Meza ; [facility] traMADol HCl 50 MG Oral Tablet 08/28/2024 Provider: CARMEN BRAND MD Diagnosis: Last Documented On 5 2:39PM By Vasiliy Meza ; [facility] Nabumetone 500 MG Oral Tablet 08/27/2024 Provider: Diagnosis: Last Documented On 5 2:39PM By Vasiliy Meza ; [facility] Glimepiride 2 MG Oral Tablet 08/07/2024 Provider: CARMEN BRAND MD Diagnosis: Last Documented On 5 2:39PM By Vasiliy Meza ; [facility] Metoprolol Succinate ER 25 M G Oral Tablet Extended Release 24 Hour 07/31/2024 Provider: Diagnosis: Last Documented On 5 2:39PM By Vasiliy Meza ; [facility] Gemtesa 75 MG Oral Tablet 07/24/2024 Provider: CONSTANTINO BRAND MD Diagnosis: Last Documented On 5 2:39PM By Vasiliy Meza ; [facility] Diphenoxylate-Atropine 2.5-0 .025 MG Oral Tablet 07/17/2024 Provider: CARMEN BRAND MD Diagnosis: Last Documented On 2:39PM By Vasiliy Meza ; [facility] Medications Administered Includes: Administered Medications in patient's chart No Administered Medications Recorded Vital Signs Includes: Vital Signs from 12/26/2023 through 12/25/2024 Vital Name 12/07/2024 11:27A 10/03/2024 02: 55P Height (in) 65 65 Weight (lb) 247 262 Body Mass Index 41.1 43.6 Body Surface Area 2.2 2.2 Pain Level 8 9 Last Documented: On 12/07/2024 11:27A M ; [facility] On 10/03/2024 2:55PM ; [facility] Results Includes: Results from 12/26/2023 through 12/25/2024 No Results Recorded For Specified Dates History of Present Illness History of Present Illness not supported for this document type No History of Present Illness Recorded Social History Description Last Updated Caffeine use 10/03/2024 Last Documented On 5 12:40PM ; [facility] No recent change in diet 10/03/2024 Last Documented On 5 12:40PM ; [facility] Not a current smoker. 10/03/2024 Last Documented On 5 12:40PM ; [facility] Not exercising regularly 10/03/2024 Last Documented On 5 12:40PM ; [facility] Not using alcohol 10/03/2024 Last Documented On 5 12:40PM ; [facility] Not using drugs 10/03/2024 Last Documented On 5 12:40PM ; [facility] Smoking Status Unknown Procedures and Surgical History Includes: Procedures from 12/26/2023 through 12/25/2024 Procedures Code Diagnosis Performing Provider Service Location Service Date X-RAY EXAM OF LOWER SPINE 4-5 VIEWS [address] Spondylolisthes is, lumbar region Alex Garcia PA-C [facility] 10/03/2024 Last Documented On 5 3:28PM ; [facility] Medical History Includes: Medical History in patient's chart Description Last Updated History of arthritis 10/03/2024 Last Documented On 5 12:40PM ; [facility] History of diabetes mellitus 10/03/2024 Last Documented On 5 12:40PM ; [facility] History of heart disease 10/03/2024 Last Documented On 5 12:40PM ; [facility] Family History Includes: Family History in patient's chart Description Last Updated Family history of cancer 10/03/2024 Last Documented On 5 12:40PM ; [facility] Family history of heart disease 10/03/19 Last Documented On 5 12:40PM ; [facility] Family history of osteoporosis 5 Last Documented On 5 12:40PM ; [facility] Review of Systems Review of Systems not supported for this document type No Review of Systems Recorded Mental Status Description No anxiety Functional Status No Functional Status Recorded Physical Exam Physical Exam not supported for this document type No Physical Exam Recorded Allergies Includes: Active, inactive, and resolved Allergies Substance Type Reaction Onset Date Resolved Date Statu s Percocet Allergy 10/03/2024 Active Last Documented On 5 11:18AM ; [facility] Encounters Includes: Encounters from 12/26/2023 through 12/25/2024 Encounter Provider Location Date Check-In Time Check-Out Time Diagnosis Follow Up Alex Garcia PA-C [facility] 12/08/19 11:20AM 11:58AM Overweight Physician Specified Alex Garcia PA-C [facility] 10/03/19 2:44PM 3:39PM Overweight Insurance Includes: Active Insurance Policies Plan Name Member ID Group # Subscriber Relationship Effect donal Dates 1 - [employer] [id number] Sindy León Clinical Notes Includes: Signed Clinical Notes starting from 08/12/2022 * Progress note Date Encounter Last Documented by 12/07/2024 Follow Up Last documented on 12/07/2024; 11:57 AM, Alex Baker; [facility] Active Problems & Conditions - Lower Back [...] Tablet 30 days, 0 refills - Nystatin [id number] UNIT/GM External Cream 10 days, 0 refills [...] hip OA Previous Tests Imaging: X-Ray: X-ray [facility]. Available previous imaging studies were reviewed [...] software and may contain errors and omissions. * Progress note Date Encounter Last Documented by 10/03/2024 Physician Specified Last [email or web address] on 10/09/2024; 12:40 PM, Alex Garcia PA-C; [facility], [facility] Active Problems & Conditions - Lower Back [...] back pain Previous Tests Imaging: X-Ray: X-ray [facility]. Available previous imaging studies were reviewed [...]
[2024-12-25 16:21] LABS: Basophils # 0.1 K/mm3 (0-0.2); Basophils % 0.5 % (0.1-2.0); Eosinophils # 0.2 Kmm3 (0.0-0.4); Eosinophils % 1.3 % (0.1-12.0); Hematocrit 37.1 % (37.0-47.0); Hemoglobin 12.2 g/dL (12.2-16.2); Lymphocytes # 2.6 K/mm3 (0.7-4.5); Lymphocytes % 16.8 % (10-50); Mean Corpuscular HGB Conc 32.9 g/dL (31.8-35.4); Mean Corpuscular Hemoglobin 27.1 pg (27.0-31.2); Mean Corpuscular Volume 82.4 fl (81-99); Mean Platelet Volume 9.5 fl (7.4-10.4); Monocytes # 0.9 K/mm3 (0.1-1.0); Monocytes % 6.1 % (1.7-9.3); Neutrophils # 11.3 K/mm3 (1.8-7.8); Neutrophils % 74.6 % (37.0-80.0); Nucleated Red Blood Cells # 0 10^3/uL; Nucleated Red Blood Cells % 0 %; Platelet Count 379 K/mm3 (142-424); Red Cell Distribution Width 14.2 % (11.5-17.5); Red Cell Distribution Width-SD 42.2 fL; White Blood Count 15.2 K/mm3 (4.8-10.8)
[2024-12-25 18:28] LABS: Alanine Aminotransferase 17 U/L (12-78); Albumin Level 3.7 g/dl (3.5-5.0); Alkaline Phosphatase 104 U/L (38-126); Anion Gap 9.3 mEq/L (5-15); Aspartate Amino Transferase 21 U/L (14-36); Bilirubin,Direct 0.3 mg/dl (0.0-0.4); Bilirubin,Indirect 0.1 mg/dL (0.0-0.9); Bilirubin,Total 0.4 mg/dl (0.2-1.3); Bilirubin,Unconjugated 0.2 mg/dL (0.0-1.1); Blood Urea Nitrogen 34 mg/dl (7-17); Carbon Dioxide 25 mmol/L (22.0-30.0); Chloride 109 mmol/L (98-107); Chol/HDL Ratio 2.3 (1-3.5); Cholesterol 148 mg/dl (140-200); Estimated Glomerular Filt Rate 40 ml/min (>60); GFR (African American) 48 ML/MIN (>60); Glucose 105 mg/dl (74-100); HDL Cholesterol 65 mg/dl (40-60); Potassium 5.3 mmoL/L (3.5-5.1); Sodium 138 mmol/L (136-145); Total Protein,Serum 6.9 g/dl (6.3-8.2); Triglycerides 112 mg/dl (30-150); VLDL Cholesterol 22 mg/dL (0-40)
[2024-12-25 18:39] LABS: Direct LDL Cholesterol 48.99 mg/dL (100-129)
[2024-12-25 19:51] LABS: Free T4 (Free Thyroxine) 1.19 ng/dl (0.78-2.19)
[2024-12-25 20:05] LABS: Thyroid Stimulating Hormone 1.62 uIU/mL (0.465-4.68)
== END 2024-12-25 23:59 | disposition home or self-care (01) ==
PROVIDERS: Internal Medicine; PCP Family Medicine; Visit Provider Urology
DX: R31.9 Hematuria, unspecified (principal); E11.9 Type 2 diabetes mellitus without complications; R53.83 Other fatigue; I10 Essential (primary) hypertension; E78.2 Mixed hyperlipidemia; I25.118 Atherosclerotic heart disease of native coronary artery with other forms of angina pectoris
CPT/HCPCS: 36415; 76770; 80048; 80061; 80076; 84439; 84443; 85025

== ENCOUNTER 2025-01-07 16:23 | Outpatient (CLI) | payer MEDICARE, SELFPAY ==
[2025-01-07 16:02] LABS: Microscopic, Urine URINE MICROSCOPIC (MICROSCOPIC)
[2025-01-07 19:37] LABS: Bilirubin,Urine Negative (Negative); Blood, Urine 1+ (Negative); Color,Urine YELLOW (Yellow); Glucose,Urine (UA) Negative (Negative); Ketones,Urine Negative (Negative); Leukocyte Esterase,Urine 2+ (Negative); Nitrate,Urine POSITIVE (Negative); Protein,Urine Negative (Negative); Specific Gravity, Urine 1.015 (1.005-1.030); Urobilinogen,Urine 0.2 EU/dl (0.2)
[2025-01-07 20:01] LABS: Appearance,Urine Slightly Cloudy (Clear)
[2025-01-07 20:22] LABS: Bacteria,Urine 4+ /lpf
[2025-01-07 20:23] LABS: RBC,Urine Occasional #/hpf (0-3); WBC,Urine 20-50 #/hpf (0-3)
== END 2025-01-07 23:59 | disposition home or self-care (01) ==
LOC: LAB.DROPOF 16:23
PROVIDERS: PCP Urology; Visit Provider Urology
DX: N39.0 Urinary tract infection, site not specified (principal); B96.20 Unspecified Escherichia coli [E. coli] as the cause of diseases classified elsewhere
CPT/HCPCS: 81001; 87086; 87088; 87186